=== PATIENT | male | born 1950 | race Two or more races ===

== ENCOUNTER 2024-06-22 15:44 | Inpatient (IN) | payer MEDICARE, MEDICAID, SELFPAY ==
[2024-06-22 16:11] VITALS: BP 92/55; PULSE 91; RESP 18; TEMP 37.4; O2SAT 98; BMI 23.8
--- NOTE | 2024-06-22 16:16 | XR_ITS ---
Examination: Foot, right, 3 views Technique: AP, oblique, lateral views foot, 3 views Date and time of exam: June 22, 2024 1631 hrs. Indications: Bleeding from the amputation site right foot this morning, patient is a diabetic Findings: Severe osteopenia Amputation first and second metatarsals Periosteal new bone along the second and third metatarsals consistent with osteomyelitis Soft tissue swelling with air densities at the fifth metatarsal phalangeal joint with early erosions distal fifth metatarsal Impression: Chronic osteomyelitis second and third metatarsals Early acute osteomyelitis distal fifth metatarsal with soft tissue infection at the fifth metatarsophalangeal joint
--- NOTE | 2024-06-22 16:17 | PD.EDRME ---
Rapid Medical Screening Exam RME Arrival date/time: 06/22/24 15:44 74-year-old male presents to the emergency department today for complaints of infection right foot Chief Complaint: Skin/Abscess/Foreign Body Vital signs: Vital Signs Temperature 99.4 F 06/22/24 16:11 Pulse Rate 91 06/22/24 16:11 Respiratory Rate 18 06/22/24 16:11 Blood Pressure 92/55 L 06/22/24 16:11 Pulse Oximetry (%) 98 06/22/24 16:11 Oxygen Delivery Method Room Air 06/22/24 16:11
[2024-06-22 16:57] LABS: Lactate (Lactic Acid) 1.7 mMol/L (0.4-2.0)
[2024-06-22 17:02] LABS: Basophils % (Auto) 0 % (0-2.5); Eosinophils # (Auto) 0.1 Thou/mm3 (0.0-0.5); Eosinophils % (Auto) 1 % (0-10); Hematocrit 32.7 % (41.0-53.0); Hemoglobin 11.5 g/dL (13.5-16.0); Immature Granulocytes % (Auto) 0 % (0-0); Immature Granulocytes Auto 0.03 Thou/mm3 (0.00-0.00); Lymphocytes # (Auto) 1.3 Thou/mm3 (1.0-4.8); Lymphocytes % (Auto) 12 % (10-50); Mean Corpuscular HGB Conc 35.2 g/dl (31.0-37.0); Mean Corpuscular Hemoglobin 31.9 pg (25.0-35.0); Mean Corpuscular Volume 91 fL (80-100); Monocytes # (Auto) 0.6 Thou/mm3 (0.0-0.8); Monocytes % (Auto) 6 % (0-12); Neutrophils # (Auto) 8.6 Thou/mm3 (1.8-7.7); Neutrophils % (Auto) 81 % (37-80); Nucleated Red Blood Cell % 0 /100 WBC (0); Platelet Count 253 Thou/mm3 (140-440); Red Blood Count 3.61 Miln/mm3 (4.50-5.90); White Blood Count 10.6 Thou/mm3 (3.8-10.6)
[2024-06-22 17:15] LABS: Glucose Estimated Average 226 mg/dL (80-131); Hemoglobin A1C 9.5 % Hgb (4.8-6.0)
[2024-06-22 17:24] LABS: Alanine Aminotransferase 14 U/L (10-49); Albumin, Serum 3.9 gm/dL (3.4-4.8); Albumin/Globulin Ratio 1.2 (1.2-2.2); Alkaline Phosphatase 83 U/L (46-116); Anion Gap 9 (7-16); Aspartate Amino Transferase 15 U/L (0-34); BUN/Creatinine Ratio 11 Ratio (12-20); Bilirubin,Total 0.4 mg/dL (0.3-1.2); Blood Urea Nitrogen 35 mg/dL (9-23); C-Reactive Protein 6.9 mg/dL (0.0-0.9); Calcium 8.8 mg/dL (8.3-10.6); Calcium (Corrected) 8.9 mg/dL (8.5-10.1); Carbon Dioxide 25.1 mMol/L (20.0-31.0); Chloride 104 mMol/L (98-107); Creatinine (Component) 3.3 mg/dL (0.6-1.3); Estimated Creatinine Clearance 18.3 mL/min (>60); Globulin 3.3 gm/dL (2.3-3.5); Glucose 284 mg/dL (74-106); Osmolality,Calculated 293 (275-295); Procalcitonin 0.31 ng/ml (0.0-0.49); Sodium 138 mMol/L (136-145); Total Protein 7.2 gm/dL (5.7-8.2); eGFR 19 See Note
[2024-06-22 17:26] LABS: Partial Thromboplastin Time 29.3 Seconds (22.0-36.0); Prothrombin Time 11.3 Seconds (9.0-12.2)
[2024-06-22 17:32] LABS: Sed Rate (ESR) 80 mm/hr (0-20)
--- NOTE | 2024-06-22 19:21 | PD.EDSKIN ---
ED Skin Abcess FB-RME/HPI General Chief complaint: Skin/Abscess/Foreign Body Stated complaint: Blister to right foot Time Seen by Provider: 06/22/24 19:20 Arrival date/time: 06/22/24 15:44 RME / HPI RME / HPI narrative: 74-year-old male patient with significant history of diabetes mellitus, status post below-knee amputation on the left came in for evaluation regarding right foot infection. Patient woke up this morning with redness and blister formation to the right foot, with pain described as dull ache severity is 4 out of 10. Patient denies any fever denies any other complaints no medication was taken prior to arrival. Related Data Home Medications ?Medication ?Instructions ?Recorded ?Confirmed atorvastatin 20 mg tablet 20 mg PO QDAY 08/14/20 08/14/20 glipizide 5 mg tablet, extended 5 mg PO QDAY 08/14/20 08/14/20 release 24 hr lisinopril 2.5 mg tablet 2.5 mg PO QDAY 08/14/20 08/14/20 metformin 1,000 mg tablet 1,000 mg PO BID 08/14/20 08/14/20 Allergies Allergy/AdvReac Type Severity Reaction Status Date / Time Penicillins Allergy Verified 06/22/24 15:47 Review of Systems Review of Systems Narrative Review of Systems: Review of system reviewed and within normal limits except mentioned in HPI ED Exam Narrative Physical exam: VITAL SIGNS: Reviewed. GENERAL APPEARANCE: Alert and interactive, follows commands, no acute distress, HEAD AND FACE: Non-traumatic. ENT: PERRL, pink conjunctivitis, eyelid no trauma, Mucous membrane moist. NECK: Supple, nontender, no nuchal rigidity. CHEST: No tenderness, no crepitus, no paradoxical movement, no retractions. LUNGS: Clear, well ventilated, symmetric, no rales, no wheezing, no ronchi, no stridor, good breath sounds bilaterally. HEART: Regular rate, regular rhythm, no murmur, no gallops. ABDOMEN: Soft, positive bowel sounds, nondistended, no guarding, nontender, no rebound, no masses, RECTAL: Deferred. GENITAL: Deferred. NEUROLOGICAL: Gross motor function intact sensory function intact, Appropriate for age. MUSCULOSKELETAL: low back nontender, full range of motion. EXTREMITIES: Status post below-knee amputation, with prosthesis, right foot deformity, status post right great to amputation, redness and swelling with serosanguineous drainage noted on the lateral aspect of the distal foot, warm to touch, full range of motion. SKIN: Color pink, dry, no rash, no lacerations, no abrasions, no contusions. LYMPHATICS: Deferred. Course Quality Measures none Orders Category Date Time Status XR foot comp RT min 3V Stat Exams 06/22/24 16:16 Completed A1C [Glycohemoglobin w (eAG)] Stat Lab 06/22/24 16:42 Completed Blood Culture (Lab) Stat Lab 06/22/24 16:35 Received CBC Stat Lab 06/22/24 16:42 Completed CMP [Comprehensive Metabolic Panel] Stat Lab 06/22/24 16:42 Completed CRP [C-Reactive Protein] Stat Lab 06/22/24 16:42 Completed ESR [Sed Rate (ESR)] Stat Lab 06/22/24 16:42 Completed Lactic Acid [Lactate (Lactic Acid)] Stat Lab 06/22/24 16:42 Completed PT [Prothrombin Time with INR] Stat Lab 06/22/24 16:42 Completed PTT [Partial Thromboplastin Time] Stat Lab 06/22/24 16:42 Completed Procalcitonin Stat Lab 06/22/24 16:42 Completed Vancomycin/Ns 1 gm Ivpb 200 ml Med 06/22/24 19:16 Discontinued IV X1 ceFAZolin/D5W 2 GM IV [Ancef 2gm Ivpb] Med 06/22/24 19:16 Discontinued 2 gm in 100 ml IV X1 Vital Signs Vital signs: Vital Signs Temperature 99.4 F 06/22/24 16:11 Pulse Rate 91 06/22/24 16:11 Respiratory Rate 18 06/22/24 16:11 Blood Pressure 92/55 L 06/22/24 16:11 Pulse Oximetry (%) 98 06/22/24 16:11 Oxygen Delivery Method Room Air 06/22/24 16:11 Skin / Abscess / Foreign Body MDM Narrative MDM Narrative:: 74-year-old male patient with significant history of diabetes mellitus, status post below-knee amputation on the left came in for evaluation regarding right foot infection. Patient woke up this morning with redness and blister formation to the right foot, with pain described as dull ache severity is 4 out of 10. Patient denies any fever denies any other complaints no medication was taken prior to arrival. CBC showed no leukocytosis. BUN was noted to be 35, creatinine of 3.3. Patient's hemoglobin A1c was noted also to be 9.5. X-ray of the foot showed Chronic osteomyelitis second and third metatarsals Early acute osteomyelitis distal fifth metatarsal with soft tissue infection at the fifth metatarsophalangeal joint Patient received IV vancomycin and Ancef IV Patient data External records reviewed:: None Clinical information provided by:: patient and family Social determinants that could affect healthcare access:: none Patient has the following chronic illnesses:: Diabetes mellitus How is presenting disease/condition affected by chronic disease/condition?: exacerbated by Evaluation data The following diagnostics were reviewed and interpreted by me:: lab results and radiology exam(s) Lab and/or radiology exams considered but not ordered:: None Interpretation Summary: See results in [facility] Medications / Prescriptions Medications or Prescriptions considered but not ordered:: Plan Medication administrations:: Medication Administration History Acetaminophen (Acetaminophen 325 Mg Tablet) 650 mg PO Q6H PRN PRN Reason: Fever >100.4 or pain 1-3 Stop: 07/22/24 19:20 Dextrose (Dextrose 50%-Water Inj 50 Ml Syringe) 25 ml IV Q15MIN PRN PRN Reason: BG 50-70 responsive npo pt Stop: 07/22/24 19:23 Dextrose (Dextrose 50%-Water Inj 50 Ml Syringe) 50 ml IV Q15MIN PRN PRN Reason: BG <50 OR BG <70 & pt unresponsive Stop: 07/22/24 19:23 Glucagon (Glucagon Inj 1 Mg Vial) 1 mg IM Q15MIN PRN PRN Reason: BG <70, and no IV access Heparin Sodium (Porcine) (Heparin Sod Inj 5000 Unit/Ml Vial) 5,000 unit SC Q8HR [facility] Stop: 07/06/24 21:59 Hydralazine HCl (Hydralazine Inj 20 Mg/Ml Vial) 10 mg IV Q6H PRN PRN Reason: SBP >180 Stop: 07/22/24 20:13 Hydromorphone HCl (Hydromorphone Inj 2 Mg/Ml Vial) 1 mg IVP Q4HR PRN PRN Reason: Pain 7-10 Stop: 06/27/24 20:22 Sodium Chloride (Ns) 1,000 mls @ 75 mls/hr IV .[id number] [facility] Stop: 07/22/24 19:29 Last Admin: 06/22/24 19:55 Dose: 75 mls/hr Documented By: BD Piperacillin/Tazobactam/Dextrose (Zosyn) 3.375 gm in 50 mls @ 12.5 mls/hr IV Q12HR JACINDA Stop: 06/30/24 08:59 Insulin Glargine (Insulin Glargine (Lantus) 5 Unit/0.05 Ml (Per 5 Units)) 10 unit SC QDAY JACINDA Stop: 07/23/24 08:59 Insulin Human Lispro (Insulin Lispro (Admelog) 1 Unit/0.01 Ml Unit) 0 unit SC AC JACINDA; Protocol Stop: 07/23/24 07:29 Oxycodone/Acetaminophen (Oxycodone/Apap 5/325 Tablet) 1 tab PO Q6HR PRN PRN Reason: Pain 4-6 Stop: 06/27/24 19:54 Pharmacy Consult (Vancomycin Pharmacy To Dose 1 Each Each) 1 each IV QDAY PRN PRN Reason: PROTOCOL Stop: 07/23/24 08:59 Discontinued Medications Acetaminophen (Acetaminophen 325 Mg Tablet) 650 mg PO Q6H PRN PRN Reason: Fever >101.5 Stop: 07/22/24 19:20 Acetaminophen (Acetaminophen 325 Mg Tablet) 650 mg PO Q6H PRN PRN Reason: Fever >100.4 or pain Stop: 07/22/24 19:20 Vancomycin/Sodium Chloride (Vancomycin/Ns 1 Gm Ivpb) 200 mls @ 120 mls/hr IV X1 ONE Stop: 06/22/24 20:55 Last Admin: 06/22/24 19:54 Dose: 120 mls/hr Documented By: BD Cefazolin Sodium (Ancef 2gm Ivpb) 2 gm in 100 mls @ 200 mls/hr IV X1 ONE Stop: 06/22/24 19:45 Piperacillin/Tazobactam/Dextrose (Zosyn) 3.375 gm in 50 mls @ 100 mls/hr IV X1 ONE Stop: 06/22/24 20:29 Insulin Human Lispro (Insulin Lispro (Admelog) 1 Unit/0.01 Ml Unit) 0 unit SC AC JACINDA; Protocol Stop: 07/23/24 07:29 Nicotine (Nicotine Patch 7 Mg/24 Hr Patch.Td24) 7 mg TOP X1 ONE Stop: 06/22/24 20:18 Oxycodone/Acetaminophen (Oxycodone/Apap 5/325 Tablet) 1 tab PO Q6HR PRN PRN Reason: Pain 4-10 Stop: 06/27/24 19:54 Ancef, Selina Consultations Consultation(s) initiated? (list below): No Diagnosis Skin/Abscess Differential Diagnosis: abscess of skin or subcutaneous tissue, cellulitis and impetigo Most likely diagnosis given after review of the tests above:: Diabetic foot infection Admission Indicated Admission indicated?: not indicated Admission Request Was there a request for admission?: Yes Admission Attestation Admission request attestation: Discussed case with [Dr Zaragoza] from Hospitalist service regarding admission. Discussed patients ED course, exam findings, labs, and radiology results. The Hospitalist [agrees,] to accept the patient for admission. Disposition Plan Disposition Plan: Admit Discharge Plan Plan Patient Disposition: Admit Acute Care w/in Hospital Disposition Comment: Stable Problem List Clinical Impression: Diabetic foot infection
[2024-06-22 19:27] VITALS: BP 162/81; PULSE 70; RESP 16; TEMP 36.9; O2SAT 99
--- NOTE | 2024-06-22 19:32 | PD.EVENT ---
Documentation for date of: 06/22/24 Event Note Event Note: A 74-year-old male presented to the ER with the chief complaint of right foot pain. He reports having a chronic wound on his right foot for several years, but over the past 4 days, the pain has progressively worsened. On the morning of presentation, the wound began to crack open and ooze fluid, which he describes as being associated with severe pain. He denies any fever, chills, sick contacts, or trauma to the area. He also denies chest pain, shortness of breath, palpitations, cough, abdominal pain, nausea, vomiting, or diarrhea. 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 Surgical history includes left BKA and right forearm surgery. Despite an elevated A1c of 9.5% indicating poorly controlled diabetes, the patient states that his home glucose levels are well-controlled. He is currently taking Rybelsus and Januvia and is not using insulin. He has a reported allergy to penicillin (rash). Family history is notable for a father who of a heart attack and a mother with unspecified cancer. Social history includes a [id number] smoking history, no alcohol or illicit drug use. He lives alone in [place] and was accompanied to the ED by a friend. In the ER, vital signs recorded as temp 99.4?F, HR 91 bpm, RR 18, BP 92/55 mmHg. Labs revealed WBC 10.6, Hb 11.5, PLT 253, Na 138, K 4.0, BUN 35, creatinine 3.3, glucose 284, A1c 9.5, procalcitonin 0.31, and ESR 80. X-ray of the right foot demonstrated chronic osteomyelitis of the second and third metatarsals and early acute osteomyelitis of the distal fifth metatarsal with soft tissue infection at the fifth metatarsophalangeal joint. He is going to be admitted for further management. Right foot with hyperpigmentation, xerosis, and scaly patches along the dorsum and lateral ankle. Notable ulceration and thickened skin with overlying eschar and erythema on the dorsal foot. S/P first and second toe amputation on right foot.
--- NOTE | 2024-06-22 19:34 | ESHP_ITS ---
<Statement entered by Guero Gonzalez MD - 06/22/24 20:05> This patient is a 74-year-old F with history of diabetes presented with complaint of right foot pain and oozing discharge x 4 days ago. He has a history of left below-knee amputation due to osteomyelitis as well. He is admitted for osteomyelitis right fifth metatarsal. ESR and CRP were elevated. Surgery has been consulted and antibiotics Zosyn and vancomycin were started. He was also found to have STEFFANIE on CKD stage IIIb?IV. Will be given gentle IV fluid resuscitation. Blood cultures and MRSA screen along with wound care was ordered. All labs and orders were reviewed. I saw and examined the patient, and I agree with current management stated by Dr Patrick MD,PGY1. Plan of care was discussed with the attending physician and resident physician. Disclaimer: Despite multiple revisions, due to the dictation software being used, the document bellow may not be free of grammatical errors including phonetic/typographic errors. However, this does not deter from our commitment to providing health care in the patient's best interest in mind. Dr. Carlos MD, PGY 2 Documentation for date of: 06/22/24 HPI History of Present Illness Chief complaint: R foot pain History of present illness: 74-year-old Ivorian-speaking male with past medical history of hypertension, owh-pwqizhq-oyvgugewl type 2 diabetes, left BKA secondary to diabetes associated osteomyelitis, tobacco dependence, hyperlipidemia, CKD stage IV presenting to the ED on 06/22 with right foot pain. Patient states that he has had a wound on his right foot for several years; however, for the past 4 days the pain has been progressively worsening. This morning is when the wound started to crack open and had some oozing which was associated with severe pain. Patient denies having any fever/chills, sick contacts, trauma to the area but does state that the pain is very severe. Patient has uncontrolled diabetes as noted with an A1c of 9.5%; however, he does state that blood sugars at home are well-controlled patient is on Rybelsus and Januvia and denies using any insulin. Patient otherwise denies any concerning symptoms such as chest pain, shortness of breath, palpitations, cough, abdominal pain, nausea/vomiting/diarrhea. Medical history: As stated above Surgical history: Left BKA, right forearm surgery Allergies: Penicillin apparently causes a rash Medications: As listed Family history: Patient's father from heart attack, mother had cancer (unknown what type), denies family history of hypertension or diabetes Social history: Patient is accompanied in the ED by his friend, currently lives in [place], lives alone. Patient has been smoking since 14 years old, less than 1 pack a day roughly [id number] history, denies any alcohol or illicit drug use ROS: All 12 systems assessed and the patient denies unless otherwise stated in HPI In the ED, patient presented hypotensive 92/55, heart rate 91, respiratory rate 18, afebrile 99.4 ?F, satting 98 on room air. Fingerstick blood glucose showed 261 and laboratory findings were pertinent for WBC of 10.6, hemoglobin 11.5 with MCV 91, BUN 35, creatinine 3.3, EGFR 19, A1c of 9.5, lactic acid 1.7, CRP 6.9, ESR 80, Pro-Josue 0.31. Foot x-ray showed chronic osteomyelitis of the 2nd and 3rd metatarsals and early acute osteomyelitis of the distal fifth metatarsal with soft tissue infection at the fifth metatarsal phalangeal joint. Patient will be admitted for osteomyelitis of the fifth metatarsal and started on IV antibiotics, pain management and general surgery were consulted for possible need for amputation. Exam Vital Signs Temp Pulse Resp BP Pulse Ox O2 Del Method 98.4 F 70 16 162/81 H 99 Room Air 06/22/24 19:27 06/22/24 19:27 06/22/24 19:27 06/22/24 19:27 06/22/24 19:27 06/22/24 19:27 Narrative Exam Physical Exam: GENERAL: Awake, answering questions appropriately in Ivorian, appears stated age. HEENT: NC/AT. Moist mucosa. PERRLA/EOMI. CARDIO: Heart RRR, III/ systolic ejection murmur heard at left sternal border, no JVD. PULM: No coughing or visible SOB. Lungs CTA B/L other than some periodic wheezing noted on lateral lung braswell bila.terally GI: Abdomen soft, NT/ND, +BS. SKIN/MSK/EXT: Right foot bandaged, missing phalanges, oozing ulcer noted. Left BKA with prosthetic. No wounds/discoloration/rashes/edema. +Pedal pulses present B/L. NEURO: Oriented x3, Moves extremities x4, no focal neurologic deficits noted. Results: Labs 06/22/24 16:42 06/22/24 16:42 Labs: Short CBC 06/22/24 Range/Units 16:42 WBC 10.6 (3.8-10.6) Thou/mm3 Hgb 11.5 L (13.5-16.0) g/dL Hct 32.7 L (41.0-53.0) % Plt Count 253 (140-440) Thou/mm3 BMP 06/22/24 16:42 Sodium 138 Potassium 4.0 Chloride 104 Carbon Dioxide 25.1 BUN 35 H Creatinine 3.3 H Glucose 284 H Calcium 8.8 Liver Function 06/22/24 Range/Units 16:42 Total Bilirubin 0.4 (0.3-1.2) mg/dL AST 15 (0-34) U/L ALT 14 (10-49) U/L Alkaline Phosphatase 83 (46-116) U/L Albumin 3.9 (3.4-4.8) gm/dL Quality Measures Quality Measures VTE prophylaxis Advance care planning discussed with:: patient Medications Home Medications and Allergies Home Medications ?Medication ?Instructions ?Recorded ?Confirmed ?Type atorvastatin 20 mg tablet 20 mg PO QDAY 08/14/2008/14 History glipizide 5 mg tablet, extended 5 mg PO QDAY 08/14/20 08/14/20 History release 24 hr lisinopril 2.5 mg tablet 2.5 mg PO QDAY 08/14/2006/01 History metformin 1,000 mg tablet 1,000 mg PO BID 08/14/2006/01 History Allergies Allergy/AdvReac Type Severity Reaction Status Date / Time Penicillins Allergy Verified 06/22/24 15:47 Visit Medications Acetaminophen (Acetaminophen 325 Mg Tablet) 650 mg PO Q6H PRN PRN Reason: Fever >101.5 Stop: 07/22/24 19:20 Dextrose (Dextrose 50%-Water Inj 50 Ml Syringe) 25 ml IV Q15MIN PRN PRN Reason: BG 50-70 responsive npo pt Stop: 07/22/24 19:23 Dextrose (Dextrose 50%-Water Inj 50 Ml Syringe) 50 ml IV Q15MIN PRN PRN Reason: BG <50 OR BG <70 & pt unresponsive Stop: 07/22/24 19:23 Glucagon (Glucagon Inj 1 Mg Vial) 1 mg IM Q15MIN PRN PRN Reason: BG <70, and no IV access Heparin Sodium (Porcine) (Heparin Sod Inj 5000 Unit/Ml Vial) 5,000 unit SC Q8HR [facility]ACINDA Stop: 07/06/24 21:59 Vancomycin/Sodium Chloride (Vancomycin/Ns 1 Gm Ivpb) 200 mls @ 120 mls/hr IV X1 ONE Stop: 06/22/24 20:55 Sodium Chloride (Ns) 1,000 mls @ 75 mls/hr IV .[id number] JACINDA Stop: 07/22/24 19:29 Piperacillin/Tazobactam/Dextrose (Zosyn) 2.25 gm in 50 mls @ 100 mls/hr IV Q6H JACINDA Stop: 06/29/24 19:29 Insulin Glargine (Insulin Glargine (Lantus) 5 Unit/0.05 Ml (Per 5 Units)) 10 unit SC QDAY JACINDA Stop: 07/23/24 08:59 Insulin Human Lispro (Insulin Lispro (Admelog) 1 Unit/0.01 Ml Unit) 0 unit SC AC JACINDA; Protocol Stop: 07/23/24 07:29 Pharmacy Consult (Vancomycin Pharmacy To Dose 1 Each Each) 1 each IV QDAY PRN PRN Reason: PROTOCOL Stop: 07/23/24 08:59 Discontinued Medications Cefazolin Sodium (Ancef 2gm Ivpb) 2 gm in 100 mls @ 200 mls/hr IV X1 ONE Stop: 06/22/24 19:45 Assessment & Plan Plan 74-year-old Ivorian-speaking male with past medical history of hypertension, wci-xwhxdqe-hyvssaylv type 2 diabetes, 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 #Acute osteomyelitis, right fifth metatarsal #Chronic osteomyelitis As per HPI, patient has been having 4 days of progressive right foot pain with open lesion that started this morning Patient has been having wound for several years now likely secondary to poorly controlled type 2 diabetes Patient denies having any trauma to the area, denies having any fever/chills or any other concerning cardiac symptoms In the ED, patient presented hypotensive, afebrile but with a temperature of 99.4 ?F, heart rate of 91 WBC of 10.6, ESR of 80 and CRP of 6.9, Pro-Josue of 0.31 In the ED, patient was given vancomycin and started on NS at 75 cc an hour Foot x-ray showed chronic osteomyelitis of the 2nd and 3rd metatarsals and early acute osteomyelitis of the distal fifth metatarsal with soft tissue infection at the fifth metatarsal phalangeal joint. Plan: General Surgery, Dr. Alfonso, consulted appreciate recommendations Patient started on IV Vancomycin (pharmacy to dose) and IV Zosyn 3.375 every 12 Multimodal pain management with Tylenol, oxycodone and dilaudid Wound referral Blood cultures #STEFFANIE on CKD stage IV Likely secondary to poorly controlled type 2 diabetes along with hypertension Patient has known history of CKD as noted from EMR with creatinine baseline of 1.9-2.0 Patient presenting with creatinine of 3.3 likely secondary to osteomyelitis infection Patient on home lisinopril, pending official med rec Plan: Continue maintenance IV fluids as noted above Avoid nephrotoxic agents Renally dose medications Follow-up with morning labs #Bja-ogcmune-edggrmjlq type 2 diabetes Longstanding history of type 2 diabetes, patient states that he is on Rybelsus and Januvia pending official med rec Patient's fingerstick blood glucose have been in the 260s and A1c is 9.5 Plan: Insulin glargine 10 units at bedtime Sliding scale insulin Carb consistent low diet Diabetic education #Hypertension Chronic medical condition, patient is on home lisinopril pending official med rec Plan: Hold LIANET/ARB in the setting of STEFFANIE on CKD As needed hydralazine 10 mg every 6 if systolic blood pressures greater than 180 #Hyperlipidemia Chronic medical condition, patient apparently on atorvastatin pending official med rec Plan: Restart home medication when appropriate #Normocytic anemia Likely secondary to kidney disease (anemia of chronic disease) versus iron deficiency anemia, vitamin deficiency, less likely to be hemolytic anemia, bone marrow malignancy Hemoglobin of 11.5 with MCV of 91, RDW within normal limits and platelets stable at 253 Plan: Follow-up on iron panel, ferritin, reticulocyte count ordered Consider blood smear if continues to downtrend #Tobacco dependence Patient has been smoking <1 pack a day for ~60 years; since age 14 Roughly 40-pack year history Plan: Nicotine patch Follow-up with PCP for low-dose CT for lung cancer screening Hospital Management: Lines: PIV Diet: Carb consistent low Bowel: Senna as needed GI prophylaxis: Not needed DVT prophylaxis: Heparin subcu Dispo: IV antibiotics and pain management for acute osteomyelitis with general surgery consultation Code: DNR Patient seen and assessed with attending Dr. Zaragoza and senior resident Dr. Carlos Zambrano, PGY-1 Attending Provider Attestation/Addendum Pt was evaluated and plan formulated together with the housestaff team. I have reviewed the residents note above and agree with most of its content. Please refer to the residents note for additional details.
[2024-06-22] MEDS: VANCOMYCIN/NS 1 GM IVPB 200 ML IV (19:54)
[2024-06-22] MEDS: SODIUM CHLORIDE 0.9% 1000 ML 1,000 ML 75 ML IV (19:55)
[2024-06-22 20:32] LABS: Magnesium 2.2 mg/dL (1.6-2.6)
[2024-06-22] MEDS: PIPER/TAZO 3.375 GM PREMIX 3.375 GM/50 ML BAG IV (21:12)
[2024-06-22] MEDS: NICOTINE PATCH 7 MG/24 HR PATCH.TD24 TOP (21:15)
[2024-06-22] MEDS: HEPARIN SOD INJ 5000 UNIT/ML VIAL SC (21:48)
[2024-06-22 23:32] VITALS: BMI 21.3
[2024-06-22 23:58] VITALS: BP 162/74; PULSE 69; RESP 18; TEMP 36.4; O2SAT 100
[2024-06-23 04:00] VITALS: BP 134/58; PULSE 72; RESP 16; TEMP 36.6; O2SAT 99
[2024-06-23 05:54] LABS: Basophils % (Auto) 0 % (0-2.5); Eosinophils # (Auto) 0.2 Thou/mm3 (0.0-0.5); Eosinophils % (Auto) 2 % (0-10); Hematocrit 28.8 % (41.0-53.0); Hemoglobin 9.9 g/dL (13.5-16.0); Immature Granulocytes % (Auto) 0 % (0-0); Immature Granulocytes Auto 0.01 Thou/mm3 (0.00-0.00); Immature Reticulocyte Fraction 9.1 % (2.3-13.4); Lymphocytes # (Auto) 1.3 Thou/mm3 (1.0-4.8); Lymphocytes % (Auto) 18 % (10-50); Mean Corpuscular HGB Conc 34.4 g/dl (31.0-37.0); Mean Corpuscular Volume 90 fL (80-100); Monocytes # (Auto) 0.5 Thou/mm3 (0.0-0.8); Monocytes % (Auto) 7 % (0-12); Neutrophils # (Auto) 5.1 Thou/mm3 (1.8-7.7); Neutrophils % (Auto) 72 % (37-80); Nucleated Red Blood Cell % 0 /100 WBC (0); Platelet Count 216 Thou/mm3 (140-440); RDW Standard Deviation 38.8 fL (35.1-43.9); Red Blood Count 3.19 Miln/mm3 (4.50-5.90); Reticulocyte % (Auto) 0.8 % (0.5-1.5); Reticulocyte Absolute Auto 25.2 Biln/L (25.0-75.0); Reticulocyte Hgb Content 32.6 pg (28.0-35.0)
[2024-06-23] MEDS: HEPARIN SOD INJ 5000 UNIT/ML VIAL SC ×3 (05:55→22:23)
[2024-06-23 06:07] LABS: Anion Gap 7 (7-16); BUN/Creatinine Ratio 11 Ratio (12-20); Blood Urea Nitrogen 34 mg/dL (9-23); Calcium 8.1 mg/dL (8.3-10.6); Carbon Dioxide 26.1 mMol/L (20.0-31.0); Chloride 108 mMol/L (98-107); Creatinine (Component) 3.1 mg/dL (0.6-1.3); Estimated Creatinine Clearance 18.2 mL/min (>60); Glucose 332 mg/dL (74-106); Magnesium 2.2 mg/dL (1.6-2.6); Osmolality,Calculated 301 (275-295); Phosphorous 3.3 mg/dL (2.4-5.1); Potassium 3.6 mMol/L (3.4-5.1); Sodium 141 mMol/L (136-145); eGFR 21 See Note
[2024-06-23 06:42] LABS: Ferritin 240 ng/mL (10.5-307.3); Iron 31 mcg/dL (65-175); Percent Iron Saturation 18 % (20-55); Total Iron Binding Capacity 166 mcg/dL (250-425); Unsaturated Iron Binding 135 (225-295)
[2024-06-23 07:38] LABS: Vancomycin,Random 10.3 mcg/mL
[2024-06-23] MEDS: INSULIN LISPRO (AdmeLOG) 1 UNIT/0.01 ML UNIT SC ×2 (07:43→18:30)
[2024-06-23] MEDS: INSULIN GLARGINE (Lantus) 5 UNIT/0.05 ML (PER 5 UNITS) 10 UNIT SC (07:43)
[2024-06-23 08:00] VITALS: BP 140/72; PULSE 75; RESP 19; TEMP 36.7; O2SAT 97
[2024-06-23] MEDS: VANCOMYCIN/NS 1 GM IVPB 200 ML IV (09:16)
[2024-06-23] MEDS: PIPER/TAZO 3.375 GM PREMIX 3.375 GM/50 ML BAG IV ×2 (09:16→22:22)
[2024-06-23] MEDS: SODIUM CHLORIDE 0.9% 1000 ML 1,000 ML 75 ML IV ×2 (09:17→22:24)
--- NOTE | 2024-06-23 11:53 | ESPR_ITS ---
Documentation for date of: 06/23/24 Subjective Subjective Interval history: Patient seen and examined at bedside. Patient admitted overnight for osteomyelitis, was evaluated by surgery today. Surgery recommends wound care, x-ray was evident for osteomyelitis. Will continue IV antibiotics, will consider infectious disease consult on Tuesday with possible PICC line placement. Patient's hemoglobin A1c 9.5, sliding scale insulin changed to step 3. Will continue to monitor patient. Exam Vital Signs Temp Pulse Resp BP Pulse Ox O2 Del Method 98.1 F 75 19 140/72 H 97 Room Air 06/23/24 08:00 06/23/24 08:00 06/23/24 08:00 06/23/24 08:00 06/23/24 08:00 06/23/24 08:00 Narrative Exam Physical Exam: GENERAL: Awake, answering questions appropriately in Italian, appears stated age. HEENT: NC/AT. Moist mucosa. PERRLA/EOMI. CARDIO: Heart RRR, III/ systolic ejection murmur heard at left sternal border, no JVD. PULM: No coughing or visible SOB. Lungs CTA B/L GI: Abdomen soft, NT/ND, +BS. SKIN/MSK/EXT: Right foot bandaged, missing phalanges, oozing ulcer noted. Left BKA with prosthetic. +Pedal pulses present B/L. NEURO: Oriented x3, Moves extremities x4, no focal neurologic deficits noted. Objective Labs 06/27/24 07:24 06/27/24 05:05 Labs: Laboratory Results - last 24 hr 06/22/24 06/23/24 16:42 05:30 WBC 10.6 7.0 RBC 3.61 L 3.19 L Hgb 11.5 L 9.9 L Hct 32.7 L 28.8 L MCV 91 90 MCH 31.9 31.0 MCHC 35.2 34.4 RDW Std Deviation 39.0 38.8 Plt Count 253 216 D Neut % (Auto) 81 H 72 Lymph % (Auto) 12 18 [place] % (Auto) 6 7 Eos % (Auto) 1 2 Baso % (Auto) 0 0 Neut # (Auto) 8.6 H 5.1 Lymph # (Auto) 1.3 1.3 [place] # (Auto) 0.6 0.5 Eos # (Auto) 0.1 0.2 Baso # (Auto) 0.0 0.0 Immature Gran # (Auto) 0.03 H 0.01 H Absolute Nucleated RBC 0.00 0.00 Immature Gran % 0 0 Nucleated RBC % 0 0 ESR 80 H Retic Count (auto) 0.8 Absolute Retic 25.2 Immature Retic Fraction 9.1 Retic Hgb Content CHr 32.6 PT 11.3 INR 1.0 APTT 29.3 Sodium 138 141 Potassium 4.0 3.6 Chloride 104 108 H Carbon Dioxide 25.1 26.1 Anion Gap 9 7 BUN 35 H 34 H Creatinine 3.3 H 3.1 H Estim Creat Clear Calc 18.3 L 18.2 L eGFR 19 L 21 L BUN/Creatinine Ratio 11 L 11 L Glucose [address] Glu mg/dL 226 H Hemoglobin A1c 9.5 H Calculated Osmolality 293 301 H Lactic Acid 1.7 Calcium 8.8 8.1 L Corrected Calcium 8.9 Phosphorus 3.3 Magnesium 2.2 2.2 Iron 31 L TIBC 166 L Iron Saturation 18 L Unsat Iron Binding 135 L Ferritin 240 Total Bilirubin 0.4 AST 15 ALT 14 Alkaline Phosphatase 83 C-Reactive Prot, Quant 6.9 H Total Protein 7.2 Albumin 3.9 Globulin 3.3 Albumin/Globulin Ratio 1.2 Procalcitonin 0.31 Random Vancomycin 10.3 Quality Measures Quality Measures none Advance care planning discussed with:: patient Assessment & Plan Assessment Current Active Medications: Generic Name Dose Route Start Last Admin Trade Name Freq PRN Reason Stop Dose Admin Acetaminophen 650 mg 06/22/24 20:24 Acetaminophen 325 Mg Tablet PO 07/22/24 19:20 Q6H PRN Fever >100.4 or pain 1-3 Dextrose 25 ml 06/22/24 19:24 Dextrose 50%-Water Inj 50 Ml Syringe IV 07/22/24 19:23 Q15MIN PRN BG 50-70 responsive npo pt Dextrose 50 ml 06/22/24 19:24 Dextrose 50%-Water Inj 50 Ml Syringe IV 07/22/24 19:23 Q15MIN PRN BG <50 OR BG <70 & pt unresponsive Glucagon 1 mg 06/22/24 19:24 Glucagon Inj 1 Mg Vial IM Q15MIN PRN BG <70, and no IV access Heparin Sodium (Porcine) 5,000 unit 06/22/24 22:00 06/23/24 05:55 Heparin Sod Inj 5000 Unit/Ml Vial SC 07/06/24 21:59 5,000 unit Q8HR JACINDA Administration Hydralazine HCl 10 mg 06/22/24 20:14 Hydralazine Inj 20 Mg/Ml Vial IV 07/22/24 20:13 Q6H PRN SBP >180 Hydromorphone HCl 1 mg 06/22/24 20:23 Hydromorphone Inj 2 Mg/Ml Vial IVP 06/27/24 20:22 Q4HR PRN Pain 7-10 Sodium Chloride 1,000 mls @ 75 mls/hr 06/22/24 19:30 06/23/24 09:17 Ns IV 07/22/24 19:29 75 mls/hr .[id number] JACINDA Administration Piperacillin/Tazobactam/Dextrose 3.375 gm in 50 mls @ 12.5 mls/hr 06/23/24 09:00 06/23/24 09:16 Zosyn IV 06/30/24 08:59 12.5 mls/hr Q12HR JACINDA Administration Insulin Glargine 10 unit 06/23/24 09:00 06/23/24 07:43 Insulin Glargine (Lantus) 5 Unit/0.05 Ml (Per 5 Units) SC 07/23/24 08:59 10 unit QDAY JACINDA Administration Insulin Human Lispro 0 unit 06/23/24 08:30 06/23/24 11:29 Insulin Lispro (Admelog) 1 Unit/0.01 Ml Unit SC 07/23/24 07:29 Not Given AC JACINDA Protocol Oxycodone/Acetaminophen 1 tab 06/22/24 20:24 Oxycodone/Apap 5/325 Tablet PO 06/27/24 19:54 Q6HR PRN Pain 4-6 Pharmacy Consult 1 each 06/23/24 09:00 Vancomycin Pharmacy To Dose 1 Each Each IV 07/23/24 08:59 QDAY PRN PROTOCOL Sennosides 1 tab 06/22/24 23:07 Senna Tablet PO 07/22/24 23:06 QDAY PRN CONSTIPATION Protocol Plan 74-year-old Italian-speaking male with past medical history of hypertension, [id number] type 2 diabetes, 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 #Acute osteomyelitis, right fifth metatarsal #Chronic osteomyelitis As per HPI, patient has been having 4 days of progressive right foot pain with open lesion that started this morning Patient has been having wound for several years now likely secondary to poorly controlled type 2 diabetes Patient denies having any trauma to the area, denies having any fever/chills or any other concerning cardiac symptoms In the ED, patient presented hypotensive, afebrile but with a temperature of 99.4 ?F, heart rate of 91 WBC of 10.6, ESR of 80 and CRP of 6.9, Pro-Josue of 0.31 In the ED, patient was given vancomycin and started on NS at 75 cc an hour Foot x-ray showed chronic osteomyelitis of the 2nd and 3rd metatarsals and early acute osteomyelitis of the distal fifth metatarsal with soft tissue infection at the fifth metatarsal phalangeal joint. Plan: Patient started on IV Vancomycin (pharmacy to dose) and IV Zosyn 3.375 every 12 (06/22- Multimodal pain management with Tylenol, oxycodone and dilaudid Wound referral Follow blood cultures General Surgery, Dr. Alfonso, consulted appreciate recommendations #STEFFANIE on CKD stage IV Likely secondary to poorly controlled type 2 diabetes along with hypertension Patient has known history of CKD as noted from EMR with creatinine baseline of 1.9-2.0 Patient presenting with creatinine of 3.3 likely secondary to osteomyelitis infection Patient on home lisinopril, pending official med rec Plan: Continue maintenance IV fluids Avoid nephrotoxic agents Renally dose medications Follow-up with morning labs #Bha-ugtxfas-libhrdbpp type 2 diabetes Longstanding history of type 2 diabetes, patient states that he is on Rybelsus and Januvia pending official med rec Patient's fingerstick blood glucose have been in the 260s and A1c is 9.5 Plan: Insulin glargine 10 units at bedtime Sliding scale insulin step 3 Carb consistent low diet Diabetic education #Hypertension Chronic medical condition, patient is on home lisinopril pending official med rec Plan: Hold LIANET/ARB in the setting of STEFFANIE on CKD As needed hydralazine 10 mg every 6 if systolic blood pressures greater than 180 #Hyperlipidemia Chronic medical condition, patient apparently on atorvastatin pending official med rec Plan: Restart home medication when appropriate #Normocytic anemia Likely multifactorial and to kidney disease (anemia of chronic disease) and iron deficiency anemia, vitamin deficiency, less likely to be hemolytic anemia, bone marrow malignancy Hemoglobin of 11.5 with MCV of 91, RDW within normal limits and platelets stable at 253 Iron 31, TIBC 166, iron saturation 18%, onset iron binding 135, ferritin 240 Plan: Follow CBC in a.m. #Tobacco dependence Patient has been smoking <1 pack a day for ~60 years; since age 14 Roughly 40-pack year history Plan: Nicotine patch Follow-up with PCP for low-dose CT for lung cancer screening Hospital Management: Lines: PIV Diet: Carb consistent low Bowel: Senna as needed GI prophylaxis: Not needed DVT prophylaxis: Heparin subcu Code: DNR Case discussed with Attending Dr. Bragg. Lori Thorne PGY1 Disclaimer: This note was dictated by speech recognition. Minor errors in parachute crown sewer may be present due to voice recognition software. Attending Provider Attestation/Addendum Patient seen and examined at bedside with resident. I have reviewed all relevant labs, imaging, orders and agree with assessment and plan as dictated above. Patient currently on IV antibiotics, surgery eval done and states no surgical indications at this time. Will continue with IV antibiotics and plan to discharge on p.o. antibiotics in the next 1 to 2 days. Chad Bragg MD
[2024-06-23 12:00] VITALS: BP 144/68; PULSE 68; RESP 17; TEMP 36.2; O2SAT 98
--- NOTE | 2024-06-23 12:51 | PD.SURCONS ---
HPI Consult details Consult date: 06/23/24 Reason for consultation narrative: Right foot osteomyelitis History of present illness: 74-year-old male history of diabetes, hypertension, tobacco use disorder, PAD has had left BKA, and amputations of right fourth and fifth toes in the past. He was admitted with pain and drainage from the right foot. X-ray was obtained that revealed chronic osteomyelitis of second and third toes and acute osteomyelitis of fifth toe with soft tissue infection. Patient was started on IV antibiotics and admitted for management. Review of Systems Constitutional Constitutional: Denies chills and Denies fever(s) Cardiovascular Cardiovascular: Denies chest pain Gastrointestinal Gastrointestinal: Denies abdominal pain Hematologic/Lymphatic Hematologic/Lymphatic: Denies easy bleeding and Denies easy bruising Past Medical History Surgical History OTHER SURGICAL HX: Left BKA, right fourth and fifth toe amputation Social History SMOKING STATUS: Current every day smoker SUBSTANCE USE: does not use ALCOHOL: Former Meds Home Medications and Allergies Home Medications ?Medication ?Instructions ?Recorded ?Confirmed ?Type atorvastatin 20 mg tablet 20 mg PO QDAY 08/14/20 08/14/20 History glipizide 5 mg tablet, extended 5 mg PO QDAY 08/14/20 08/14/20 History release 24 hr lisinopril 2.5 mg tablet 2.5 mg PO QDAY 08/14/20 08/14/20 History metformin 1,000 mg tablet 1,000 mg PO BID 08/14/20 08/14/20 History Allergies Allergy/AdvReac Type Severity Reaction Status Date / Time Penicillins Allergy Verified 06/22/24 15:47 Exam Vital Signs Temp Pulse Resp BP Pulse Ox O2 Del Method O2 Flow Rate 97.2 F 68 17 144/68 H 98 Nasal Cannula 2 06/23/24 12:00 06/23/24 12:00 06/23/24 12:00 06/23/24 12:00 06/23/24 12:00 06/23/24 12:00 06/23/24 12:00 Constitutional Constitutional: no acute distress Routine Extremities Exam Comments: He has left BKA.. He appears to have had fourth and fifth toes amputated on the right side. He has a blister on the lateral aspect of right foot that was debrided, no evidence of abscess at this time Assessment & Plan Additional Assessment Additional comments: Osteomyelitis right foot Plan Local wound care with wet-to-dry dressings and IV antibiotics. No indications for surgical intervention at this time. When medically stable patient can be discharged on oral antibiotics and follow-up with wound clinic
[2024-06-23 13:45] VITALS: BMI 21.2
[2024-06-23 16:00] VITALS: BP 154/69; PULSE 67; RESP 18; TEMP 36.9; O2SAT 99
[2024-06-23 20:00] VITALS: BP 157/70; PULSE 74; RESP 16; TEMP 36.8; O2SAT 99
[2024-06-24] VITALS: BP 165/74; PULSE 73; RESP 18; TEMP 36.3; O2SAT 98
[2024-06-24 04:00] VITALS: BP 145/72; PULSE 66; RESP 18; TEMP 37; O2SAT 98
[2024-06-24] MEDS: HEPARIN SOD INJ 5000 UNIT/ML VIAL SC ×3 (05:06→21:44)
[2024-06-24] MEDS: oxyCODONE/APAP 5/325 TABLET 1 TAB PO (05:06)
[2024-06-24 06:11] LABS: Basophils % (Auto) 1 % (0-2.5); Eosinophils # (Auto) 0.2 Thou/mm3 (0.0-0.5); Eosinophils % (Auto) 2 % (0-10); Hematocrit 28.4 % (41.0-53.0); Hemoglobin 9.9 g/dL (13.5-16.0); Immature Granulocytes % (Auto) 0 % (0-0); Immature Granulocytes Auto 0.03 Thou/mm3 (0.00-0.00); Lymphocytes # (Auto) 1.6 Thou/mm3 (1.0-4.8); Lymphocytes % (Auto) 20 % (10-50); Mean Corpuscular HGB Conc 34.9 g/dl (31.0-37.0); Mean Corpuscular Volume 89 fL (80-100); Monocytes # (Auto) 0.6 Thou/mm3 (0.0-0.8); Monocytes % (Auto) 7 % (0-12); Neutrophils # (Auto) 5.9 Thou/mm3 (1.8-7.7); Neutrophils % (Auto) 70 % (37-80); Nucleated Red Blood Cell % 0 /100 WBC (0); Platelet Count 218 Thou/mm3 (140-440); RDW Standard Deviation 37.3 fL (35.1-43.9); Red Blood Count 3.19 Miln/mm3 (4.50-5.90); White Blood Count 8.4 Thou/mm3 (3.8-10.6)
[2024-06-24 06:32] LABS: Anion Gap 6 (7-16); BUN/Creatinine Ratio 11 Ratio (12-20); Blood Urea Nitrogen 29 mg/dL (9-23); Calcium 8.1 mg/dL (8.3-10.6); Carbon Dioxide 23.5 mMol/L (20.0-31.0); Chloride 112 mMol/L (98-107); Creatinine (Component) 2.7 mg/dL (0.6-1.3); Estimated Creatinine Clearance 20.9 mL/min (>60); Glucose 104 mg/dL (74-106); Osmolality,Calculated 287 (275-295); Phosphorous 3.2 mg/dL (2.4-5.1); Potassium 3.9 mMol/L (3.4-5.1); Sodium 141 mMol/L (136-145); Vancomycin,Random 16.2 mcg/mL; eGFR 24 See Note
[2024-06-24 08:00] VITALS: BP 176/83; PULSE 72; RESP 19; TEMP 36.5; O2SAT 99
[2024-06-24] MEDS: INSULIN GLARGINE (Lantus) 5 UNIT/0.05 ML (PER 5 UNITS) 10 UNIT SC (08:31)
[2024-06-24] MEDS: PIPER/TAZO 3.375 GM PREMIX 3.375 GM/50 ML BAG IV ×2 (08:31→21:43)
[2024-06-24] MEDS: VANCOMYCIN/NS 500 MG IVPB 100 ML 120 MG IV (10:09)
[2024-06-24] MEDS: INSULIN LISPRO (AdmeLOG) 1 UNIT/0.01 ML UNIT SC ×2 (11:51→17:13)
[2024-06-24 11:56] VITALS: BP 142/66; PULSE 63; RESP 18; TEMP 36.8; O2SAT 98
[2024-06-24 11:58] VITALS: BP 142/66; PULSE 63
[2024-06-24] MEDS: amLODIPine BESYLATE 5 MG TABLET PO (11:58)
--- NOTE | 2024-06-24 14:41 | PD.RESPRO ---
Documentation for date of: 06/24/24 Subjective Subjective Interval history: Patient examined at bedside. No overnight events. He denies any pain, right foot in kerlix roll with no obvious bleeding or drainage. STEFFANIE resolving with Cr 2.7. A1c 9.5. Started on amlodpine 5 mg for BP control. ID recs pending for possible PO antibiotics in setting of osteomyelitis. Exam Vital Signs Temp Pulse Resp BP Pulse Ox O2 Del Method O2 Flow Rate 98.2 F 63 18 142/66 H 98 Room Air 2 06/24/24 11:56 06/24/24 11:58 06/24/24 11:56 06/24/24 11:58 06/24/24 11:56 06/24/24 11:56 06/23/24 12:00 Narrative Exam Physical Exam: GENERAL: Awake, answering questions appropriately in [place], appears stated age. HEENT: NC/AT. Moist mucosa. PERRLA/EOMI. CARDIO: Heart RRR, III/ systolic ejection murmur heard at left sternal border, no JVD. PULM: No coughing or visible SOB. Lungs CTA B/L GI: Abdomen soft, NT/ND, +BS. SKIN/MSK/EXT: Right foot in kerliex roll, no bleeding, Left BKA with prosthetic. NEURO: Oriented x3, Moves extremities x4, no focal neurologic deficits noted. Objective Labs 06/24/24 05:49 06/24/24 05:49 Labs: Laboratory Results - last 24 hr 06/24/24 05:49 WBC 8.4 RBC 3.19 L Hgb 9.9 L Hct 28.4 L MCV 89 MCH 31.0 MCHC 34.9 RDW Std Deviation 37.3 Plt Count 218 Neut % (Auto) 70 Lymph % (Auto) 20 [place] % (Auto) 7 Eos % (Auto) 2 Baso % (Auto) 1 Neut # (Auto) 5.9 Lymph # (Auto) 1.6 [place] # (Auto) 0.6 Eos # (Auto) 0.2 Baso # (Auto) 0.0 Immature Gran # (Auto) 0.03 H Absolute Nucleated RBC 0.00 Immature Gran % 0 Nucleated RBC % 0 Sodium 141 Potassium 3.9 Chloride 112 H Carbon Dioxide 23.5 Anion Gap 6 L BUN 29 H Creatinine 2.7 H Estim Creat Clear Calc 20.9 L eGFR 24 L BUN/Creatinine Ratio 11 L Glucose 104 D Calculated Osmolality 287 Calcium 8.1 L Phosphorus 3.2 Magnesium 2.0 Random Vancomycin 16.2 Quality Measures Quality Measures none Advance care planning discussed with:: patient Assessment & Plan Assessment Current Active Medications: Generic Name Dose Route Start Last Admin Trade Name Freq PRN Reason Stop Dose Admin Acetaminophen 650 mg 06/22/24 20:24 Acetaminophen 325 Mg Tablet PO 07/22/24 19:20 Q6H PRN Fever >100.4 or pain 1-3 Amlodipine Besylate 5 mg 06/24/24 11:00 06/24/24 11:58 Amlodipine Besylate 5 Mg Tablet PO 07/24/24 10:59 5 mg QDAY JACINDA Administration Dextrose 25 ml 06/22/24 19:24 Dextrose 50%-Water Inj 50 Ml Syringe IV 07/22/24 19:23 Q15MIN PRN BG 50-70 responsive npo pt Dextrose 50 ml 06/22/24 19:24 Dextrose 50%-Water Inj 50 Ml Syringe IV 07/22/24 19:23 Q15MIN PRN BG <50 OR BG <70 & pt unresponsive Glucagon 1 mg 06/22/24 19:24 Glucagon Inj 1 Mg Vial IM Q15MIN PRN BG <70, and no IV access Heparin Sodium (Porcine) 5,000 unit 06/22/24 22:00 06/24/24 13:57 Heparin Sod Inj 5000 Unit/Ml Vial SC 07/06/24 21:59 5,000 unit Q8HR JACINDA Administration Hydralazine HCl 10 mg 06/22/24 20:14 Hydralazine Inj 20 Mg/Ml Vial IV 07/22/24 20:13 Q6H PRN SBP >180 Hydromorphone HCl 1 mg 06/22/24 20:23 Hydromorphone Inj 2 Mg/Ml Vial IVP 06/27/24 20:22 Q4HR PRN Pain 7-10 Sodium Chloride 1,000 mls @ 75 mls/hr 06/22/24 19:30 06/23/24 22:24 Ns IV 07/22/24 19:29 75 mls/hr .[id number] JACINDA Administration Piperacillin/Tazobactam/Dextrose 3.375 gm in 50 mls @ 12.5 mls/hr 06/23/24 09:00 06/24/24 08:31 Zosyn IV 06/30/24 08:59 12.5 mls/hr Q12HR JACINDA Administration Vancomycin/Sodium Chloride 100 mls @ 120 mls/hr 06/24/24 10:00 06/24/24 10:09 Vancomycin/Ns 500 Mg Ivpb IV 07/01/24 09:59 120 mls/hr QDAY@1000 JACINDA Administration Insulin Glargine 10 unit 06/23/24 09:00 06/24/24 08:31 Insulin Glargine (Lantus) 5 Unit/0.05 Ml (Per 5 Units) SC 07/23/24 08:59 10 unit QDAY JACINDA Administration Insulin Human Lispro 0 unit 06/23/24 08:30 06/24/24 11:51 Insulin Lispro (Admelog) 1 Unit/0.01 Ml Unit SC 07/23/24 07:29 3 unit AC JACINDA Administration Protocol Oxycodone/Acetaminophen 1 tab 06/22/24 20:24 06/24/24 05:06 Oxycodone/Apap 5/325 Tablet PO 06/27/24 19:54 1 tab Q6HR PRN Administration Pain 4-6 Pharmacy Consult 1 each 06/23/24 09:00 Vancomycin Pharmacy To Dose 1 Each Each IV 07/23/24 08:59 QDAY PRN PROTOCOL Sennosides 1 tab 06/22/24 23:07 Senna Tablet PO 07/22/24 23:06 QDAY PRN CONSTIPATION Protocol Plan 74-year-old Citizen [place]-speaking male with past medical history of hypertension, [id number] type 2 diabetes, 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 #Acute osteomyelitis, right fifth metatarsal #Chronic osteomyelitis As per HPI, patient has been having 4 days of progressive right foot pain with open lesion that started this morning Patient has been having wound for several years now likely secondary to poorly controlled type 2 diabetes Patient denies having any trauma to the area, denies having any fever/chills or any other concerning cardiac symptoms In the ED, patient presented hypotensive, afebrile but with a temperature of 99.4 ?F, heart rate of 91 WBC of 10.6, ESR of 80 and CRP of 6.9, Pro-Josue of 0.31 In the ED, patient was given vancomycin and started on NS at 75 cc an hour Foot x-ray showed chronic osteomyelitis of the 2nd and 3rd metatarsals and early acute osteomyelitis of the distal fifth metatarsal with soft tissue infection at the fifth metatarsal phalangeal joint. Plan: -Patient on IV Vancomycin (pharmacy to dose) and IV Zosyn 3.375 every 12 (06/22- -Multimodal pain management with Tylenol, oxycodone and dilaudid -Wound referral -Follow blood cultures -General Surgery, Dr. Alfonso, consulted appreciate recommendations: no need for surgery, may start PO antibiotics. -ID consulted: recs pending #STEFFANIE on CKD stage IV Likely secondary to poorly controlled type 2 diabetes along with hypertension Patient has known history of CKD as noted from EMR with creatinine baseline of 1.9-2.0 Patient presenting with creatinine of 3.3 likely secondary to osteomyelitis infection Patient on home lisinopril, pending official med rec Plan: -Continue maintenance IV fluids -Avoid nephrotoxic agents -Renally dose medications --up with morning labs #Aks-ctxjqyr-mqsgkxjtd type 2 diabetes Longstanding history of type 2 diabetes, patient states that he is on Rybelsus and Januvia pending official med rec Patient's fingerstick blood glucose have been in the 260s and A1c is 9.5 Plan: -Insulin glargine 10 units at bedtime -Sliding scale insulin step 3 -carb consistent low diet -Diabetic education #Hypertension Chronic medical condition, patient is on home lisinopril pending official med rec Plan: -Hold LIANET/ARB in the setting of STEFFANIE on CKD -As needed hydralazine 10 mg every 6 if systolic blood pressures greater than 180 -amlodipine 5mg daily #Hyperlipidemia Chronic medical condition, patient apparently on atorvastatin pending official med rec Plan: -atorvastatin 20mg daily #Normocytic anemia Likely multifactorial and to kidney disease (anemia of chronic disease) and iron deficiency anemia, vitamin deficiency, less likely to be hemolytic anemia, bone marrow malignancy Hemoglobin of 11.5 with MCV of 91, RDW within normal limits and platelets stable at 253 Iron 31, TIBC 166, iron saturation 18%, onset iron binding 135, ferritin 240 Plan: Follow CBC in a.m. #Tobacco dependence Patient has been smoking <1 pack a day for ~60 years; since age 14 Roughly 40-pack year history Plan: -Nicotine patch -Follow-up with PCP for low-dose CT for lung cancer screening Hospital Management: Lines: PIV Diet: Carb consistent low Bowel: Senna as needed GI prophylaxis: Not needed DVT prophylaxis: Heparin subcu Code: DNR Case discussed with Attending Dr. Bragg. Tina Silva, PGY1
[2024-06-24 16:00] VITALS: BP 158/76; PULSE 67; RESP 18; TEMP 36.3; O2SAT 99
[2024-06-24] MEDS: SODIUM CHLORIDE 0.9% 1000 ML 1,000 ML 75 ML IV (17:14)
[2024-06-25] VITALS (7 sets, daily range): BP systolic 124–172; BP diastolic 64–75; PULSE 59–67; RESP 15–18; TEMP 36.2–36.9; O2SAT 98–100
[2024-06-25] MEDS: oxyCODONE/APAP 5/325 TABLET 1 TAB PO (01:26)
[2024-06-25 05:32] LABS: Basophils % (Auto) 0 % (0-2.5); Eosinophils # (Auto) 0.2 Thou/mm3 (0.0-0.5); Eosinophils % (Auto) 2 % (0-10); Hematocrit 27.6 % (41.0-53.0); Hemoglobin 9.5 g/dL (13.5-16.0); Immature Granulocytes % (Auto) 0 % (0-0); Immature Granulocytes Auto 0.02 Thou/mm3 (0.00-0.00); Lymphocytes # (Auto) 1.7 Thou/mm3 (1.0-4.8); Lymphocytes % (Auto) 22 % (10-50); Mean Corpuscular HGB Conc 34.4 g/dl (31.0-37.0); Mean Corpuscular Hemoglobin 31.8 pg (25.0-35.0); Mean Corpuscular Volume 92 fL (80-100); Monocytes # (Auto) 0.5 Thou/mm3 (0.0-0.8); Monocytes % (Auto) 7 % (0-12); Neutrophils # (Auto) 5.3 Thou/mm3 (1.8-7.7); Neutrophils % (Auto) 68 % (37-80); Nucleated Red Blood Cell % 0 /100 WBC (0); Platelet Count 233 Thou/mm3 (140-440); RDW Standard Deviation 39.8 fL (35.1-43.9); Red Blood Count 2.99 Miln/mm3 (4.50-5.90); White Blood Count 7.7 Thou/mm3 (3.8-10.6)
[2024-06-25] MEDS: HEPARIN SOD INJ 5000 UNIT/ML VIAL SC ×3 (05:45→21:22)
[2024-06-25 05:59] LABS: Anion Gap 7 (7-16); BUN/Creatinine Ratio 10 Ratio (12-20); Blood Urea Nitrogen 28 mg/dL (9-23); Calcium 8.5 mg/dL (8.3-10.6); Carbon Dioxide 23.8 mMol/L (20.0-31.0); Chloride 112 mMol/L (98-107); Creatinine (Component) 2.9 mg/dL (0.6-1.3); Estimated Creatinine Clearance 19.5 mL/min (>60); Glucose 141 mg/dL (74-106); Osmolality,Calculated 292 (275-295); Phosphorous 3.4 mg/dL (2.4-5.1); Sodium 143 mMol/L (136-145); eGFR 22 See Note
[2024-06-25] MEDS: PIPER/TAZO 3.375 GM PREMIX 3.375 GM/50 ML BAG IV (09:10)
[2024-06-25] MEDS: INSULIN GLARGINE (Lantus) 5 UNIT/0.05 ML (PER 5 UNITS) 10 UNIT SC (09:13)
[2024-06-25] MEDS: SENNA TABLET 1 TAB PO (09:14)
[2024-06-25] MEDS: amLODIPine BESYLATE 5 MG TABLET PO (09:14)
--- NOTE | 2024-06-25 09:20 | PC.SS ---
Addendum entered by Maci Cuello 06/25/24 14:46: Pt is requiring PICC line for IV antibiotic, Rocephin 2rm 1 X day until August 06, 2024. Pt is agreeable to SNF for short term. Pt has not followed up with PCP for about 2 years. Original Note: Follow up note: Pending Dr. Bauer recommendations. Pt is on IV antibiotic.
--- NOTE | 2024-06-25 09:32 | ESPR_ITS ---
Subjective Subjective Interval history: 74 y/o with osteo of foot noted on imaging. should be on rocephin 2 gm/day iv and po doxy 100 bid for 6 weeks. with credit for time here on vanco/zosyn. Exam Vital Signs Temp Pulse Resp BP Pulse Ox O2 Del Method O2 Flow Rate 97.1 F 62 15 132/70 H 98 Room Air 2 06/25/24 07:14 06/25/24 09:14 06/25/24 07:14 06/25/24 09:14 06/25/24 07:14 06/25/24 07:14 06/23/24 12:00 Narrative Exam see dictation. Objective - Internal Medicine Labs 06/25/24 04:23 06/25/24 04:23 Labs: Laboratory Results - last 24 hr 06/25/24 04:23 WBC 7.7 RBC 2.99 L Hgb 9.5 L Hct 27.6 L MCV 92 MCH 31.8 MCHC 34.4 RDW Std Deviation 39.8 Plt Count 233 Neut % (Auto) 68 Lymph % (Auto) 22 [place] % (Auto) 7 Eos % (Auto) 2 Baso % (Auto) 0 Neut # (Auto) 5.3 Lymph # (Auto) 1.7 [place] # (Auto) 0.5 Eos # (Auto) 0.2 Baso # (Auto) 0.0 Immature Gran # (Auto) 0.02 H Absolute Nucleated RBC 0.00 Immature Gran % 0 Nucleated RBC % 0 Sodium 143 Potassium 4.0 Chloride 112 H Carbon Dioxide 23.8 Anion Gap 7 BUN 28 H Creatinine 2.9 H Estim Creat Clear Calc 19.5 L eGFR 22 L BUN/Creatinine Ratio 10 L Glucose 141 H Calculated Osmolality 292 Calcium 8.5 Phosphorus 3.4 Magnesium 2.0 Assessment & Plan A&P Narrative osteo of foot dm II, a1c 9.5 noted. needs to be better shukri, creat noted. if this fails,then amputation likely, if he has an amputation here that is ok but then rx likely to be much shorter please provide rocephin 2 gm/day iv thru 08/06 and doxy 100 mg po bid for the same duration ok to f/u with weekly cbc, renal panel, esr and line removal at end of rx I can not see him in f/u. have him f/u with outpt primary, they need to control dm anyway as the a1c seems high Time Spent With Patient Time: Total time spent is greater than 50% in coordination of care (as documented) at patient's floor/unit and/or counseling patient:
[2024-06-25] MEDS: SODIUM CHLORIDE 0.9% 1000 ML 1,000 ML 100 ML IV (10:38)
[2024-06-25] MEDS: cefTRIAXone 2 GM in SODIUM CHLORIDE 0.9% (Popper) 50 ML IV (10:39)
--- NOTE | 2024-06-25 11:16 | XR_ITS ---
Examination: Arterial duplex lower extremity study. Date and time of exam: June 25, 2024 1336 hours INDICATIONS: Diabetic with nonhealing wound right foot this week Findings: Duplex sonographic imaging of the lower extremity arteries using B-mode/Hart scale imaging and Doppler spectral analysis and color flow. Ankle brachial indices have been recorded. Right common femoral artery demonstrates biphasic flow. Right superficial femoral artery demonstrates biphasic flow. Right popliteal artery demonstrates biphasic flow. Right posterior tibial artery demonstrated monophasic flow. Right ankle/brachial index is 1.0. Left common femoral artery demonstrates biphasic flow. Left superficial femoral artery demonstrates monophasic flow. Left popliteal artery demonstrates monophasic flow. Left posterior tibial artery demonstrated monophasic flow. Impression: Significant bilateral peripheral obstructive arterial disease, consider correlation with CTA abdominal aorta iliofemoral runoff follow-up
[2024-06-25] MEDS: INSULIN LISPRO (AdmeLOG) 1 UNIT/0.01 ML UNIT SC ×2 (11:41→17:00)
--- NOTE | 2024-06-25 13:46 | ESCONSULT_ITS ---
RE: JAYLON CARDENAS : 1950 DATE OF CONSULTATION: 06/25/2024 REFERRING PHYSICIAN: Dr. Zaragoza REASON FOR CONSULTATION: A 74-year-old with diabetes, chronic kidney disease and osteomyelitis of the right foot. HISTORY OF PRESENT ILLNESS: The patient is an unfortunate 74-year-old man. He was started on treatment soon after admission in the evening of 06/22. As a result of counting his treatment from 06/23 on as being effective. Cultures are negative, so we are treating somewhat empirically, so usually I give Rocephin and doxycycline for that. Osteomyelitis of the foot is noted on imaging. The patient has a history of diabetes and a well-controlled A1c is over 9 and controlled hypertension. He lives by himself and stopped smoking about 30 years ago. He has chronic kidney disease, so the vancomycin is somewhat problematic as is the Zosyn, so I am going to go ahead and change him to Rocephin and doxycycline. He seems somewhat unaware of his chronic kidney disease. His creatinine does seem to be going up since 10/2006. It has been up since then, but a little more lately. His creatinine is 2.9 as of today. He probably has some chronic kidney disease, may be partially acute kidney injury, but also some chronic kidney disease as well. SURGICAL HISTORY: Includes left soymf-cqa-ijpn amputation and right digital amputations. He has not had an arterial Doppler study, but probably should so I will order one. IMMUNIZATIONS: Last tetanus was about two years ago. He has not had COVID-19 vaccination and denies pneumococcal vaccination, although he is 72 years of age. FAMILY HISTORY: Unremarkable. SOCIAL HISTORY: He lives by himself. He quit smoking about 30 years ago as mentioned. PHYSICAL EXAMINATION: The patient looks well. He denies any problems with his feet or any pain anywhere. He speaks only Armenian, so I tried to use my Armenian, which he did understand fairly well. The bedside nurse trainees also use their Armenian and seemed to understand a little bit better. Exam is otherwise benign. The right foot is wrapped with the left kxpkq-yrr-mguj amputation and appears well healed. The rest of his exam is benign. Abdomen in particular is benign. RECOMMENDATIONS: I took the liberty of changing his antibiotics to Rocephin and doxycycline with the pharmacy changed the duration of the doxycycline and Rocephin to , but you can probably go through six weeks from this initiation, which would be the through the August 06. I am happy to see him again as needed, but tried little I would do in the office, so follow-up could be with the primary. Please get a weekly CBC, renal panel, and sed rate on the treatment. This is not nephrotoxic. Unfortunately, his diabetic control is a crucial issue, so he needs to improve that. I will follow him up as needed. DT: 11:18:59 TT: 12:40:00 Ref: [id number] - TID: [id number] MTDD
--- NOTE | 2024-06-25 13:55 | ESPR_ITS ---
Documentation for date of: 06/25/24 Subjective Subjective Interval history: Patient examined at bedside. No overnight events. He denies any pain, right foot in kerlix roll with no obvious bleeding or drainage. PICC line was placed this morning for Rocefin 2g daily + doxycycline 100mg BID PO until 08/06. STEFFANIE slightly improved with Cr 2.7 from 2.9 yesterday. A1c 9.5. Nephrology consulted for STEFFANIE on CKD. Workup ordered including renal u/s and urine protein, Cr. Increase amlodpine to 10 mg daily as BP still elevated. continuing to monitor kidney function. Exam Vital Signs Temp Pulse Resp BP Pulse Ox O2 Del Method O2 Flow Rate 98.1 F 60 18 132/68 H 98 Room Air 2 06/25/24 11:36 06/25/24 11:36 06/25/24 11:36 06/25/24 11:36 06/25/24 11:36 06/25/24 11:36 06/23/24 12:00 Narrative Exam GENERAL: Awake, answering questions appropriately in Polish, appears stated age. HEENT: NC/AT. Moist mucosa. PERRLA/EOMI. CARDIO: Heart RRR, no JVD. PULM: No coughing or visible SOB. Lungs CTA B/L GI: Abdomen soft, NT/ND, +BS. SKIN/MSK/EXT: Right foot in kerliex roll, no bleeding, Left BKA with prosthetic. NEURO: Oriented x3, Moves extremities x4, no focal neurologic deficits noted. Objective Labs 06/26/24 08:35 06/26/24 08:35 Labs: Laboratory Results - last 24 hr 06/25/24 04:23 WBC 7.7 RBC 2.99 L Hgb 9.5 L Hct 27.6 L MCV 92 MCH 31.8 MCHC 34.4 RDW Std Deviation 39.8 Plt Count 233 Neut % (Auto) 68 Lymph % (Auto) 22 Haywood % (Auto) 7 Eos % (Auto) 2 Baso % (Auto) 0 Neut # (Auto) 5.3 Lymph # (Auto) 1.7 Haywood # (Auto) 0.5 Eos # (Auto) 0.2 Baso # (Auto) 0.0 Immature Gran # (Auto) 0.02 H Absolute Nucleated RBC 0.00 Immature Gran % 0 Nucleated RBC % 0 Sodium 143 Potassium 4.0 Chloride 112 H Carbon Dioxide 23.8 Anion Gap 7 BUN 28 H Creatinine 2.9 H Estim Creat Clear Calc 19.5 L eGFR 22 L BUN/Creatinine Ratio 10 L Glucose 141 H Calculated Osmolality 292 Calcium 8.5 Phosphorus 3.4 Magnesium 2.0 Quality Measures Quality Measures none Advance care planning discussed with:: patient Assessment & Plan Assessment Current Active Medications: Generic Name Dose Route Start Last Admin Trade Name Freq PRN Reason Stop Dose Admin Acetaminophen 650 mg 06/22/24 20:24 Acetaminophen 325 Mg Tablet PO 07/22/24 19:20 Q6H PRN Fever >100.4 or pain 1-3 Amlodipine Besylate 5 mg 06/24/24 11:00 06/25/24 09:14 Amlodipine Besylate 5 Mg Tablet PO 07/24/24 10:59 5 mg QDAY JACINDA Administration Dextrose 25 ml 06/22/24 19:24 Dextrose 50%-Water Inj 50 Ml Syringe IV 07/22/24 19:23 Q15MIN PRN BG 50-70 responsive npo pt Dextrose 50 ml 06/22/24 19:24 Dextrose 50%-Water Inj 50 Ml Syringe IV 07/22/24 19:23 Q15MIN PRN BG <50 OR BG <70 & pt unresponsive Doxycycline Hyclate 100 mg 06/25/24 21:00 Doxycycline 100 Mg Tablet PO 07/02/24 20:59 BID JACINDA Glucagon 1 mg 06/22/24 19:24 Glucagon Inj 1 Mg Vial IM Q15MIN PRN BG <70, and no IV access Heparin Sodium (Porcine) 5,000 unit 06/22/24 22:00 06/25/24 05:45 Heparin Sod Inj 5000 Unit/Ml Vial SC 07/06/24 21:59 5,000 unit Q8HR JACINDA Administration Hydralazine HCl 10 mg 06/22/24 20:14 Hydralazine Inj 20 Mg/Ml Vial IV 07/22/24 20:13 Q6H PRN SBP >180 Hydromorphone HCl 1 mg 06/22/24 20:23 Hydromorphone Inj 2 Mg/Ml Vial IVP 06/27/24 20:22 Q4HR PRN Pain 7-10 Sodium Chloride 1,000 mls @ 75 mls/hr 06/22/24 19:30 06/24/24 17:14 Ns IV 07/22/24 19:29 75 mls/hr .[id number] JACINDA Administration Sodium Chloride 1,000 mls @ 100 mls/hr 06/25/24 08:23 06/25/24 10:38 Ns IV 06/25/24 18:22 100 mls/hr .Q10H ONE Administration Ceftriaxone Sodium 2 gm/ 50 mls @ 100 mls/hr 06/25/24 09:28 06/25/24 10:39 Sodium Chloride IV 07/02/24 09:27 100 mls/hr QDAY JACINDA Administration Insulin Glargine 10 unit 06/23/24 09:00 06/25/24 09:13 Insulin Glargine (Lantus) 5 Unit/0.05 Ml (Per 5 Units) SC 07/23/24 08:59 10 unit QDAY JACINDA Administration Insulin Human Lispro 0 unit 06/23/24 08:30 06/25/24 11:41 Insulin Lispro (Admelog) 1 Unit/0.01 Ml Unit SC 07/23/24 07:29 3 unit AC JACINDA Administration Protocol Oxycodone/Acetaminophen 1 tab 06/22/24 20:24 06/25/24 01:26 Oxycodone/Apap 5/325 Tablet PO 06/27/24 19:54 1 tab Q6HR PRN Administration Pain 4-6 Pharmacy Consult 1 each 06/23/24 09:00 Vancomycin Pharmacy To Dose 1 Each Each IV 07/23/24 08:59 QDAY PRN PROTOCOL Sennosides 1 tab 06/22/24 23:07 06/25/24 09:14 Senna Tablet PO 07/22/24 23:06 1 tab QDAY PRN Administration CONSTIPATION Protocol Plan 74-year-old Polish-speaking male with past medical history of hypertension, [id number]-otnlfmrin type 2 diabetes, 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 #Acute osteomyelitis, right fifth metatarsal #Chronic osteomyelitis #PICC line In the ED, patient presented hypotensive, afebrile but with a temperature of 99.4 ?F, heart rate of 91 WBC of 10.6, ESR of 80 and CRP of 6.9, Pro-Josue of 0.31 Foot x-ray showed chronic osteomyelitis of the 2nd and 3rd metatarsals and early acute osteomyelitis of the distal fifth metatarsal with soft tissue infection at the fifth metatarsal phalangeal joint. Blood cultures negative at 48 hours Plan: -Multimodal pain management with Tylenol, oxycodone and dilaudid -Wound referral -General Surgery, Dr. Alfonso, consulted appreciate recommendations: no need for surgery, may start PO antibiotics. -ID recs: to place PICC line for Rocefin 2g daily (06/25) + doxycycline 100mg BID PO (06/25) until 08/06. #STEFFANIE on CKD stage IV Likely secondary to poorly controlled type 2 diabetes along with hypertension Patient has known history of CKD as noted from EMR with creatinine baseline of 1.9-2.0 Patient presenting with creatinine of 3.3 Plan: -nephrology consulted -renal u/s pending -urine protein: creatnine pending -Continue maintenance IV fluids -Avoid nephrotoxic agents -Renally dose medications -daily renal panel #[id number]-[id number] type 2 diabetes, poorly controlled Longstanding history of type 2 diabetes, patient states that he is on semaglutide and Jardiance. Patient's fingerstick blood glucose have been in the 260s and A1c is 9.5 Plan: -Insulin glargine 10 units at bedtime -Sliding scale insulin step 3 -carb consistent low diet -Diabetic education -should be discharged with ACEI #Hypertension Chronic medical condition, patient is on home lisinopril pending official med rec Plan: -Hold LIANET/ARB in the setting of STEFFANIE on CKD -As needed hydralazine 10 mg every 6 if systolic blood pressures greater than 180 -amlodipine 10 mg daily #Hyperlipidemia Chronic medical condition, patient apparently on atorvastatin pending official med rec Plan: -atorvastatin 20mg daily #Normocytic anemia Likely multifactorial and to kidney disease (anemia of chronic disease) and iron deficiency anemia, vitamin deficiency, less likely to be hemolytic anemia, bone marrow malignancy Hemoglobin of 11.5 with MCV of 91, RDW within normal limits and platelets stable at 253 Iron 31, TIBC 166, iron saturation 18%, onset iron binding 135, ferritin 240 Plan: Follow CBC in a.m. #Tobacco dependence Patient has been smoking <1 pack a day for ~60 years; since age 14 Roughly 40-pack year history Plan: -Nicotine patch -Follow-up with PCP for low-dose CT for lung cancer screening Hospital Management: Lines: PIV Diet: Carb consistent low Bowel: Senna as needed GI prophylaxis: Not needed DVT prophylaxis: Heparin subcu Code: DNR Case discussed with Attending Dr. Solorio. Tina Silva, PGY1 Attending Provider Attestation/Addendum I have discussed and was present for the essential components of the history, physical examination, diagnosis, and treatment plan with the resident. I agree with the patient's care as documented by the resident and amended herein by me. Shekhar Solorio, DO. Although this document has been carefully reviewed, there may still be some phonetic and other typographical errors. These errors are purely grammatical due to imperfections in the software program and should not be construed in any way to compromise the substance of the patient's medical care during this visit.
--- NOTE | 2024-06-25 15:27 | PC.SS ---
PASRR assessment completed. Per bedside nurse, Grace pt is not on psych, anxiety, or depression medications.
--- NOTE | 2024-06-25 16:03 | PC.SS ---
SS met with patient regarding his d/c plan.? Pt is alert/oriented.? Pt was admitted for Osteomyelitis.? Pt confirmed demographic and contact information is correct on facesheet.? Pt resides alone.? Pt ambulates independently without assistance or DME.? Pt is ok with all ADLs.? Pt named his cousin, Bambi [place] medical decision maker if he is unable.? Pt is aware he will require IV antibiotic at d/c.?Pt states he has not followed up with PCP for 2 years.? SS provided pt with verbal options for d/c to home or SNF.? Patient?s choice is SNF due to not having assistance at home to help administer the IV antibiotic.? Pt is requiring IV Rocephin 2grm 1 X day until August 06, 2024.? Patient's choice is [facility]. D/C plan:? SNF: [facility] Next of Kin:? Bambi Dc, cousin, phone# [phone] PCP:? ?[facility] Address:? Correct on facesheet
[2024-06-25] MEDS: DOXYCYCLINE 100 MG TABLET PO (21:21)
[2024-06-25] MEDS: SODIUM CHLORIDE 0.9% 1000 ML 1,000 ML 75 ML IV (21:26)
[2024-06-26] VITALS (12 sets, daily range): BP systolic 141–190; BP diastolic 64–86; PULSE 69–84; RESP 15–19; TEMP 36.4–37.1; O2SAT 98–100
[2024-06-26] MEDS: HEPARIN SOD INJ 5000 UNIT/ML VIAL SC ×3 (05:16→21:03)
--- NOTE | 2024-06-26 08:03 | ESPR_ITS ---
<Statement entered by Raad Torres MD - 07/03/24 08:07> I discussed with and supervised the data analysis intern physician involved in the care of this patient. Patient assessment and plan was discussed with entire medicine team, including my attending. I agree with the assessment and plan as documented by data analysis intern doctor. Patient care was discussed with my attending physician Dr. Lyndsey Torres, PGY-2 Documentation for date of: 07/03/24 Subjective Subjective Interval history: Patient examined at bedside. No overnight events. He denies any pain, right foot in kerlix roll with no obvious bleeding or drainage. PICC line was placed this morning for Rocefin 2g daily + doxycycline 100mg BID PO until 08/06. Nephrology consulted for STEFFANIE on CKD. Workup ordered including renal u/s and urine protein, Cr. Increase amlodpine to 10 mg daily as BP still elevated. continuing to monitor kidney function. Exam Vital Signs Temp Pulse Resp BP Pulse Ox O2 Del Method O2 Flow Rate 98.2 F 70 16 116/48 L 100 Room Air 2 06/27/24 16:00 06/27/24 16:00 06/27/24 16:00 06/27/24 16:00 06/27/24 16:00 06/27/24 16:06/25/24 16:00 Narrative Exam GENERAL: Awake, answering questions appropriately in Amharic, appears stated age. HEENT: NC/AT. Moist mucosa. PERRLA/EOMI. CARDIO: Heart RRR, no JVD. PULM: No coughing or visible SOB. Lungs CTA B/L GI: Abdomen soft, NT/ND, +BS. SKIN/MSK/EXT: Right foot in kerliex roll, no bleeding, Left BKA with prosthetic. NEURO: Oriented x3, Moves extremities x4, no focal neurologic deficits noted. Objective Labs 06/27/24 07:24 06/27/24 05:05 Quality Measures Quality Measures VTE prophylaxis Advance care planning discussed with:: patient Assessment & Plan Assessment Current Active Medications: Generic Name Dose Route Start Last Admin Trade Name Freq PRN Reason Stop Dose Admin Acetaminophen 650 mg 06/22/24 20:24 Acetaminophen 325 Mg Tablet PO 07/22/24 19:20 Q6H PRN Fever >100.4 or pain 1-3 Amlodipine Besylate 5 mg 06/24/24 11:00 06/25/24 09:14 Amlodipine Besylate 5 Mg Tablet PO 07/24/24 10:59 5 mg QDAY JACINDA Administration Dextrose 25 ml 06/22/24 19:24 Dextrose 50%-Water Inj 50 Ml Syringe IV 07/22/24 19:23 Q15MIN PRN BG 50-70 responsive npo pt Dextrose 50 ml 06/22/24 19:24 Dextrose 50%-Water Inj 50 Ml Syringe IV 07/22/24 19:23 Q15MIN PRN BG <50 OR BG <70 & pt unresponsive Doxycycline Hyclate 100 mg 06/25/24 21:00 Doxycycline 100 Mg Tablet PO 07/02/24 20:59 BID JACINDA Glucagon 1 mg 06/22/24 19:24 Glucagon Inj 1 Mg Vial IM Q15MIN PRN BG <70, and no IV access Heparin Sodium (Porcine) 5,000 unit 06/22/24 22:00 06/25/24 05:45 Heparin Sod Inj 5000 Unit/Ml Vial SC 07/06/24 21:59 5,000 unit Q8HR JACINDA Administration Hydralazine HCl 10 mg 06/22/24 20:14 Hydralazine Inj 20 Mg/Ml Vial IV 07/22/24 20:13 Q6H PRN SBP >180 Hydromorphone HCl 1 mg 06/22/24 20:23 Hydromorphone Inj 2 Mg/Ml Vial IVP 06/27/24 20:22 Q4HR PRN Pain 7-10 Sodium Chloride 1,000 mls @ 75 mls/hr 06/22/24 19:30 06/24/24 17:14 Ns IV 07/22/24 19:29 75 mls/hr .[id number] JACINDA Administration Sodium Chloride 1,000 mls @ 100 mls/hr 06/25/24 08:23 06/25/24 10:38 Ns IV 06/25/24 18:22 100 mls/hr .Q10H ONE Administration Ceftriaxone Sodium 2 gm/ 50 mls @ 100 mls/hr 06/25/24 09:28 06/25/24 10:39 Sodium Chloride IV 07/02/24 09:27 100 mls/hr QDAY JACINDA Administration Insulin Glargine 10 unit 06/23/24 09:00 06/25/24 09:13 Insulin Glargine (Lantus) 5 Unit/0.05 Ml (Per 5 Units) SC 07/23/24 08:59 10 unit QDAY JACINDA Administration Insulin Human Lispro 0 unit 06/23/24 08:30 06/25/24 11:41 Insulin Lispro (Admelog) 1 Unit/0.01 Ml Unit SC 07/23/24 07:29 3 unit AC JACINDA Administration Protocol Oxycodone/Acetaminophen 1 tab 06/22/24 20:24 06/25/24 01:26 Oxycodone/Apap 5/325 Tablet PO 06/27/24 19:54 1 tab Q6HR PRN Administration Pain 4-6 Pharmacy Consult 1 each 06/23/24 09:00 Vancomycin Pharmacy To Dose 1 Each Each IV 07/23/24 08:59 QDAY PRN PROTOCOL Sennosides 1 tab 06/22/24 23:07 06/25/24 09:14 Senna Tablet PO 07/22/24 23:06 1 tab QDAY PRN Administration CONSTIPATION Protocol Plan 74-year-old Amharic-speaking male with past medical history of hypertension, dio-dtnjauv-oivfudcav type 2 diabetes, 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 #Acute osteomyelitis, right fifth metatarsal #Chronic osteomyelitis #PICC line In the ED, patient presented hypotensive, afebrile but with a temperature of 99.4 ?F, heart rate of 91 WBC of 10.6, ESR of 80 and CRP of 6.9, Pro-Josue of 0.31 Foot x-ray showed chronic osteomyelitis of the 2nd and 3rd metatarsals and early acute osteomyelitis of the distal fifth metatarsal with soft tissue infection at the fifth metatarsal phalangeal joint. Blood cultures negative at 48 hours Plan: -Multimodal pain management with Tylenol, oxycodone and dilaudid -Wound referral -General Surgery, Dr. Alfonso, consulted appreciate recommendations: no need for surgery, may start PO antibiotics. -ID recs: to place PICC line for Rocefin 2g daily (06/25) + doxycycline 100mg BID PO (06/25) until 08/06. #STEFFANIE on CKD stage IV Likely secondary to poorly controlled type 2 diabetes along with hypertension Patient has known history of CKD as noted from EMR with creatinine baseline of 1.9-2.0 Patient presenting with creatinine of 3.3 Plan: -nephrology consulted -renal u/s pending -urine protein: creatnine pending -Continue maintenance IV fluids -Avoid nephrotoxic agents -Renally dose medications -daily renal panel #Mlr-hczxmdd-lisaiqaqk type 2 diabetes, poorly controlled Longstanding history of type 2 diabetes, patient states that he is on semaglutide and Jardiance. Patient's fingerstick blood glucose have been in the 260s and A1c is 9.5 Plan: -Insulin glargine 10 units at bedtime -Sliding scale insulin step 3 -carb consistent low diet -Diabetic education -should be discharged with ACEI #Hypertension Chronic medical condition, patient is on home lisinopril pending official med rec Plan: -Hold LIANET/ARB in the setting of STEFFANIE on CKD -As needed hydralazine 10 mg every 6 if systolic blood pressures greater than 180 -amlodipine 10 mg daily #Hyperlipidemia Chronic medical condition, patient apparently on atorvastatin pending official med rec Plan: -atorvastatin 20mg daily #Normocytic anemia Likely multifactorial and to kidney disease (anemia of chronic disease) and iron deficiency anemia, vitamin deficiency, less likely to be hemolytic anemia, bone marrow malignancy Hemoglobin of 11.5 with MCV of 91, RDW within normal limits and platelets stable at 253 Iron 31, TIBC 166, iron saturation 18%, onset iron binding 135, ferritin 240 Plan: Follow CBC in a.m. #Tobacco dependence Patient has been smoking <1 pack a day for ~60 years; since age 14 Roughly 40-pack year history Plan: -Nicotine patch -Follow-up with PCP for low-dose CT for lung cancer screening Hospital Management: Lines: PIV Diet: Carb consistent low Bowel: Senna as needed GI prophylaxis: Not needed DVT prophylaxis: Heparin subcu Code: DNR Case discussed with Attending Dr. Solorio. Tina Silva, PGY1
--- NOTE | 2024-06-26 08:10 | PC.NURSE ---
Dr. Melissa stone to give PO medications with small sip of water; BP and antibiotic.
[2024-06-26] MEDS: amLODIPine BESYLATE 5 MG TABLET PO (08:48)
[2024-06-26] MEDS: DOXYCYCLINE 100 MG TABLET PO ×2 (08:49→21:02)
[2024-06-26] MEDS: cefTRIAXone 2 GM in SODIUM CHLORIDE 0.9% (Popper) 50 ML IV (08:50)
[2024-06-26 09:23] LABS: Vancomycin,Trough 9.8 mcg/mL (5.0-10.0)
--- NOTE | 2024-06-26 09:38 | PC.SS ---
SS has sent inquiry to the local SNF using [facility]. Pt is requiring IV antibiotic, Rocephin 2grm 1 X day until August 06, 2024.
[2024-06-26] MEDS: oxyCODONE/APAP 5/325 TABLET 1 TAB PO (09:57)
--- NOTE | 2024-06-26 10:45 | PC.NURSE ---
report given to Faustino RN, pt alert and oriented x3, pt transfer to [facility] via reece accompanied by Faustino SHAIKH.
[2024-06-26] MEDS: hydrALAZINE INJ 20 MG/ML VIAL 10 MG IV (10:56)
[2024-06-26] MEDS: HEPARIN SOD LOCK SYR 100 UNIT/ML 500 UNIT STFIELD (11:33)
[2024-06-26] MEDS: LIDOCAINE INJ PF 1% 30 ML VIAL EPID (11:33)
--- NOTE | 2024-06-26 11:41 | PC.CC ---
Received order for HH with IV antibiotics. Reviewed EMR, confirmed with SS, pt will be going to SNF, doctor was made aware to cancel HH order.
--- NOTE | 2024-06-26 11:46 | PC.NURSE ---
Report received from Faustino RN at 1143.
--- NOTE | 2024-06-26 11:48 | XR_ITS ---
Examination: Retroperitoneal ultrasound, complete Technique: Multiple high resolution grayscale images of the retroperitoneum obtained, including kidneys and bladder. Exam date and time:June 26, 2024 1313 hours Comparison October 07, 2020 INDICATIONS: Diagnosis chronic kidney disease 4 years ago FINDINGS: Right kidney 10.0 cm cortex 1.7 cm Lower pole cyst 35mm Moderate renal parenchymal scar formation Left kidney 9.9 cm cortex 1.4 cm Midpole cyst 20 mm Moderate renal parenchymal scar formation No hydronephrosis No bladder mass or bladder calculi, bladder prevoid volume 259 cc Significant prostatomegaly volume 51.2 cc no prostate nodules IMPRESSION: Moderate bilateral renal parenchymal scar formation Bilateral renal cortical thinning No hydronephrosis Prostatomegaly, 51 cc, no prostate nodules
--- NOTE | 2024-06-26 11:57 | PC.NURSE ---
pt back in room at 1115, alert and oriented x3, denies being nausea.
--- NOTE | 2024-06-26 12:55 | PC.NURSE ---
i brought patient down to cath-lab via gurney after receiving report from NEEL Hines patient stable and on room air, initially patient BP was 190/86 on left arm, then switched BP cuff to right arm and BP was 183/82 patient had hydralazine 10MG IVP available to give, 10MG hydralazine was given after Hydralazine was given i took patient to IR for PICC line insertion, consent received from patient and patient was placed in supine position on the bed, Tech prepped patient and when MD arrived a time out was done with the team, once procedure was done MD gave me a verbal order to may Use the picc line, report given to NEEL Hines PICC line card information placed in patients zipper/pouch in the chart see EMR for medications given
--- NOTE | 2024-06-26 13:19 | ESCONSULT_ITS ---
HPI Data of Consult Consult date: 06/26/24 Requesting Physician: Thong Solorio DO Admitting Provider: Chad Zaragoza MD Attending Provider: Thong Solorio DO Primary Care Provider: Sorin Lyn MD Consult Narrative Reason for consult: STEFFANIE History of present illness: Ms. Arcos is a 74-year-old male PMHx of longstanding IDDM, HTN, HLD, tobacco dependency, left leg BKA, admitted for osteomyelitis of metatarsals of the right foot. On admission, CR 3.3 (baseline around 2), BUN 35, GFR 19, GLUCOSE 284, A1C 9.5, Hgb 11.5, WBC 10.6. He has no history of renal disease, recently been told by PCP that his renal function is down and he has increased his oral fluid intake. Denies recent or recurrent UTI or URI. No changes in urine output, dysuria, hematuria or frothy urine. He had an US done in 2010 showing bilateral mild cortical thinning. Diabetes not well controlled given A1C 9.5. BP historically elevated based on chart review. He has been on DOXYCYCLINE for osteo. He received a total 11,000 cc fluids, has good urine ouput, overall +4L fluid balance. Vitals currently showing BP 141/84, otherwise WNL. Labs currently significant for Hgb 11.5, PLT 253, chloride 112, CR 2.9, BUN 28, EGFR 22, GLUCOSE 141. He had completed PICC line for IV ANTIBIOTICS. Lower extremity duplex showed significant bilateral peripheral obstruction. Foot x-ray showed chronic osteomyelitis of 2nd and 3rd metatarsal of right foot. Nephrology team was consulted for management of STEFFANIE on CKD. cc:: cc: Thong Solorio DO Exam Vital Signs Temp Pulse Resp BP Pulse Ox O2 Del Method O2 Flow Rate 97.6 F 78 18 141/84 H 100 Room Air 2 06/26/24 12:20 06/26/24 12:20 06/26/24 12:20 06/26/24 12:20 06/26/24 12:20 06/26/24 12:20 06/25/24 16:00 Narrative Exam GENERAL: Normal appearing male, NAD HEENT: NC/AT. Moist mucosa. PERRLA/EOMI. CARDIO: RRR, III/ systolic ejection murmur heard at left sternal border, no JVD. PULM: No coughing or visible SOB. Lungs CTA B/L GI: Abdomen soft, NT/ND, +BS. SKIN/MSK/EXT: Right foot in kerliex roll, no bleeding, Left BKA noted. NEURO: Oriented x3, Moves extremities x4, no focal neurologic deficits noted. Results Labs 06/27/24 07:24 06/27/24 05:05 Quality Measures Quality Measures none Advance care planning discussed with:: patient Medications Home Medications and Allergies Home Medications ?Medication ?Instructions ?Recorded ?Confirmed ?Type atorvastatin 20 mg tablet 20 mg PO QDAY 08/14/2006/26 History glipizide 5 mg tablet, extended 5 mg PO QDAY 08/14/20 08/14/20 History release 24 hr lisinopril 2.5 mg tablet 2.5 mg PO QDAY 08/14/2006/12 History metformin 1,000 mg tablet 1,000 mg PO BID 08/14/2006/01 History empagliflozin 25 mg tablet 25 mg PO QAM 06/26/2406/26 History (Jardiance) semaglutide 7 mg tablet (Rybelsus) 7 mg PO QDAY 06/26/24 History Allergies Allergy/AdvReac Type Severity Reaction Status Date / Time Penicillins Allergy Verified 06/22/24 15:47 Visit Medications Acetaminophen (Acetaminophen 325 Mg Tablet) 650 mg PO Q6H PRN PRN Reason: Fever >100.4 or pain 1-3 Stop: 07/22/24 19:20 Amlodipine Besylate (Amlodipine Besylate 5 Mg Tablet) 5 mg PO QDAY [facility] Stop: 07/24/24 10:59 Last Admin: 06/26/24 08:48 Dose: 5 mg Dextrose (Dextrose 50%-Water Inj 50 Ml Syringe) 25 ml IV Q15MIN PRN PRN Reason: BG 50-70 responsive npo pt Stop: 07/22/24 19:23 Dextrose (Dextrose 50%-Water Inj 50 Ml Syringe) 50 ml IV Q15MIN PRN PRN Reason: BG <50 OR BG <70 & pt unresponsive Stop: 07/22/24 19:23 Doxycycline Hyclate (Doxycycline 100 Mg Tablet) 100 mg PO BID [facility] Stop: 07/02/24 20:59 Last Admin: 06/26/24 08:49 Dose: 100 mg Glucagon (Glucagon Inj 1 Mg Vial) 1 mg IM Q15MIN PRN PRN Reason: BG <70, and no IV access Heparin Sodium (Porcine) (Heparin Sod Inj 5000 Unit/Ml Vial) 5,000 unit SC Q8HR [facility] Stop: 07/06/24 21:59 Last Admin: 06/26/24 13:08 Dose: 5,000 unit Hydralazine HCl (Hydralazine Inj 20 Mg/Ml Vial) 10 mg IV Q6H PRN PRN Reason: SBP >180 Stop: 07/22/24 20:13 Last Admin: 06/26/24 10:56 Dose: 10 mg Hydromorphone HCl (Hydromorphone Inj 2 Mg/Ml Vial) 1 mg IVP Q4HR PRN PRN Reason: Pain 7-10 Stop: 06/27/24 20:22 Sodium Chloride (Ns) 1,000 mls @ 75 mls/hr IV .[id number] [facility] Stop: 07/22/24 19:29 Last Admin: 06/25/24 21:26 Dose: 75 mls/hr Ceftriaxone Sodium 2 gm/ (Sodium Chloride) 50 mls @ 100 mls/hr IV QDAY [facility] Stop: 07/02/24 09:27 Last Admin: 06/26/24 08:50 Dose: 100 mls/hr Insulin Glargine (Insulin Glargine (Lantus) 5 Unit/0.05 Ml (Per 5 Units)) 10 unit SC QDAY [facility] Stop: 07/23/24 08:59 Last Admin: 06/26/24 09:17 Dose: Not Given Insulin Human Lispro (Insulin Lispro (Admelog) 1 Unit/0.01 Ml Unit) 0 unit SC AC [facility]; Protocol Stop: 07/23/24 07:29 Last Admin: 06/26/24 12:40 Dose: Not Given Oxycodone/Acetaminophen (Oxycodone/Apap 5/325 Tablet) 1 tab PO Q6HR PRN PRN Reason: Pain 4-6 Stop: 06/27/24 19:54 Last Admin: 06/26/24 09:57 Dose: 1 tab Sennosides (Senna Tablet) 1 tab PO QDAY PRN; Protocol PRN Reason: CONSTIPATION Stop: 07/22/24 23:06 Last Admin: 06/25/24 09:14 Dose: 1 tab Discontinued Medications Acetaminophen (Acetaminophen 325 Mg Tablet) 650 mg PO Q6H PRN PRN Reason: Fever >101.5 Stop: 07/22/24 19:20 Acetaminophen (Acetaminophen 325 Mg Tablet) 650 mg PO Q6H PRN PRN Reason: Fever >100.4 or pain Stop: 07/22/24 19:20 Heparin Sodium (Beef Lung) (Heparin Sod Lock Syr 100 Unit/Ml) 500 unit [place] X1 ONE Stop: 06/26/24 11:32 Last Admin: 06/26/24 11:33 Dose: 500 unit Vancomycin/Sodium Chloride (Vancomycin/Ns 1 Gm Ivpb) 200 mls @ 120 mls/hr IV X1 ONE Stop: 06/22/24 20:55 Last Infusion: 06/22/24 21:24 Dose: Infused Cefazolin Sodium (Ancef 2gm Ivpb) 2 gm in 100 mls @ 200 mls/hr IV X1 ONE Stop: 06/22/24 19:45 Last Admin: 06/22/24 21:22 Dose: Not Given Piperacillin/Tazobactam/Dextrose (Zosyn) 3.375 gm in 50 mls @ 12.5 mls/hr IV Q12HR [facility] Stop: 06/30/24 08:59 Last Admin: 06/25/24 09:10 Dose: 12.5 mls/hr Piperacillin/Tazobactam/Dextrose (Zosyn) 3.375 gm in 50 mls @ 100 mls/hr IV X1 ONE Stop: 06/22/24 20:29 Last Infusion: 06/22/24 21:47 Dose: Infused Vancomycin/Sodium Chloride (Vancomycin/Ns 1 Gm Ivpb) 200 mls @ 120 mls/hr IV X1 ONE Stop: 06/23/24 11:39 Last Admin: 06/23/24 09:16 Dose: 120 mls/hr Vancomycin/Sodium Chloride (Vancomycin/Ns 500 Mg Ivpb) 100 mls @ 120 mls/hr IV QDAY@1000 [facility] Stop: 07/01/24 09:59 Last Admin: 06/24/24 10:09 Dose: 120 mls/hr Sodium Chloride (Ns) 1,000 mls @ 100 mls/hr IV .Q10H ONE Stop: 06/25/24 18:22 Last Admin: 06/25/24 10:38 Dose: 100 mls/hr Insulin Human Lispro (Insulin Lispro (Admelog) 1 Unit/0.01 Ml Unit) 0 unit SC AC [facility]; Protocol Stop: 07/23/24 07:29 Insulin Human Lispro (Insulin Lispro (Admelog) 1 Unit/0.01 Ml Unit) 0 unit SC AC [facility]; Protocol Stop: 07/23/24 07:29 Last Admin: 06/23/24 07:43 Dose: 4 unit Lidocaine HCl (Lidocaine Inj Pf 1% 30 Ml Vial) 2 ml EPID X1 ONE Stop: 06/26/24 11:32 Last Admin: 06/26/24 11:33 Dose: 2 ml Nicotine (Nicotine Patch 7 Mg/24 Hr Patch.Td24) 7 mg TOP X1 ONE Stop: 06/22/24 20:18 Last Admin: 06/22/24 21:15 Dose: 7 mg Oxycodone/Acetaminophen (Oxycodone/Apap 5/325 Tablet) 1 tab PO Q6HR PRN PRN Reason: Pain 4-10 Stop: 06/27/24 19:54 Pharmacy Consult (Vancomycin Pharmacy To Dose 1 Each Each) 1 each IV QDAY PRN PRN Reason: PROTOCOL Stop: 07/23/24 08:59 Assessment & Plan Plan This is a 74-year-old male PMHx of longstanding IDDM, HTN, HLD, tobacco dependency, left leg BKA, admitted for osteomyelitis of metatarsals of the right foot. STEFFANIE on CKD stage IV Presented with CR 3.3 (baseline 2.0) which improved to 2.9 with fluids. Longstanding IDDM, poorly controlled, A1c 9.1. Longstanding HTN, historically elevated BP. US in 2010 showed mild hilario cortical thinning, CR 1.9 then. UA showed 2+ protein, 1+ GLUCOSE, 1+ blood. Urine output good, total 11L in and 4.3L out. Euvolemic on exam, denies current or chronic urinary symptoms. Likely has STEFFANIE on progressive diabetic nephropathy. Overall improving. ? HTN and glycemic control ? Renally dose meds, avoid overdiuresis and NEPHROTOXINS ? Daily CMP ? Pending mACr, random mAlbumen, UCr, U uric acid, PTH, Vit-D, renal US ? Maint NS @ 60 cc/h Acute osteomyelitis, right fifth metatarsal Chronic osteomyelitis [id number] type 2 diabetes Hypertension Hyperlipidemia Normocytic anemia Tobacco dependence ? Managed by primary team. Thank you for the opportunity to participate in the patient's care. Case was discussed with attending, Dr. Alarcon. June Marley DO PGYI Attending Provider Attestation/Addendum Patient seen and examined with resident physician Dr. Watkins. Note reviewed, agree with findings and recommendations. Admitted with prerenal azotemia. Agree with gentle IV fluids. Thank you Shekhar for allowing me to participate in the care of Mr. Louis
[2024-06-26 13:50] LABS: Basophils % (Auto) 0 % (0-2.5); Eosinophils # (Auto) 0.2 Thou/mm3 (0.0-0.5); Eosinophils % (Auto) 2 % (0-10); Hemoglobin 10.5 g/dL (13.5-16.0); Immature Granulocytes % (Auto) 0 % (0-0); Immature Granulocytes Auto 0.04 Thou/mm3 (0.00-0.00); Lymphocytes # (Auto) 1.4 Thou/mm3 (1.0-4.8); Lymphocytes % (Auto) 14 % (10-50); Mean Corpuscular Hemoglobin 31.4 pg (25.0-35.0); Mean Corpuscular Volume 90 fL (80-100); Monocytes # (Auto) 0.5 Thou/mm3 (0.0-0.8); Monocytes % (Auto) 5 % (0-12); Neutrophils # (Auto) 7.7 Thou/mm3 (1.8-7.7); Neutrophils % (Auto) 79 % (37-80); Nucleated Red Blood Cell % 0 /100 WBC (0); Platelet Count 278 Thou/mm3 (140-440); RDW Standard Deviation 38.5 fL (35.1-43.9); Red Blood Count 3.34 Miln/mm3 (4.50-5.90); White Blood Count 9.8 Thou/mm3 (3.8-10.6)
[2024-06-26 14:11] LABS: Alanine Aminotransferase 11 U/L (10-49); Albumin, Serum 3.6 gm/dL (3.4-4.8); Albumin/Globulin Ratio 1.2 (1.2-2.2); Alkaline Phosphatase 63 U/L (46-116); Anion Gap 11 (7-16); Aspartate Amino Transferase 14 U/L (0-34); BUN/Creatinine Ratio 12 Ratio (12-20); Bilirubin,Total 0.2 mg/dL (0.3-1.2); Blood Urea Nitrogen 32 mg/dL (9-23); Calcium 8.6 mg/dL (8.3-10.6); Calcium (Corrected) 8.9 mg/dL (8.5-10.1); Carbon Dioxide 19.8 mMol/L (20.0-31.0); Chloride 113 mMol/L (98-107); Creatinine (Component) 2.7 mg/dL (0.6-1.3); Estimated Creatinine Clearance 20.9 mL/min (>60); Globulin 2.9 gm/dL (2.3-3.5); Glucose 114 mg/dL (74-106); Osmolality,Calculated 294 (275-295); Potassium 4.2 mMol/L (3.4-5.1); Sodium 144 mMol/L (136-145); Total Protein 6.5 gm/dL (5.7-8.2); eGFR 24 See Note
--- NOTE | 2024-06-26 14:15 | XR_ITS ---
Examination: Ultrasound-guided needle placement right brachial vein. Dual-lumen central line placement (PICC line). Fluoroscopy AP chest, portable, single view Exam date and time:June 26, 2024 1050 hours INDICATIONS: Need for long-term intravenous antibiotic therapy for osteomyelitis A timeout was completed verifying correct patient, procedure, site, positioning Informed consent provided Technique: The patient's site was prepped and draped in sterile fashion. Maximum Sterile Barrier Technique used including cap, mask, sterile gown, sterile gloves, and sterile full body drape. If ultrasound technique used: sterile gel and sterile probe covers. Hand Hygiene performed using proper scrub, soap and water, or alcohol-based hand rub. Site right portable apparatus utilized to confirm patency of the right brachial vein Utilizing ultrasonographic guidance successful 21-gauge needle puncture into the right brachial vein Ultrasound images recorded and stored. 5 cc 1% lidocaine administered for local anesthetic. Successful micropuncture with a 21-gauge needle is performed. 0.18 wire guide is then introduced into the SVC under fluoroscopic guidance. Dual-lumen catheter dilator is then introduced, followed by the catheter in the SVC and proper position under fluoroscopic guidance. Successful aspiration of blood and flushing with heparinized saline is then performed in the 2 venous limbs. The catheter sutured in place. Findings: Under fluoroscopy, the tip of the catheter is in good position in the vena cava. Portable chest x-ray, post line placement is ordered. Estimated blood loss 3 cc The patient tolerated the procedure well and was in stable and satisfactory condition at completion of the procedure Impression: Successful ultrasound-guided needle placement right brachial vein Successful placement of dual lumen central line, percutaneous Fluoroscopy 0.1 minute radiation dose 0.69 milligray 1 spot fluoroscopic chest film. AP chest completion procedure demonstrates satisfactory position central line. May use central line.
[2024-06-26 14:29] LABS: Parathyroid Hormone Intact 49.7 pg/ml (18.5-88.0)
[2024-06-26] MEDS: INSULIN LISPRO (AdmeLOG) 1 UNIT/0.01 ML UNIT SC (17:04)
--- NOTE | 2024-06-26 17:30 | PC.NURSE ---
Dr. Torres made aware pt has two orders for NS IV fluids. Per md he will review chart. no new orders given.
[2024-06-26] MEDS: SODIUM CHLORIDE 0.9% 1000 ML 1,000 ML 75 ML IV (18:15)
[2024-06-26] MEDS: SODIUM CHLORIDE 0.9% 1000 ML 1,000 ML 60 ML IV (19:51)
[2024-06-27] VITALS: BP 117/57; PULSE 74; RESP 18; TEMP 36.8; O2SAT 99
[2024-06-27 03:08] LABS: Creatinine,Random Urine 58 mg/dL (30-125); Protein Total, Random Urine 218 mg/dL (1-14)
[2024-06-27 03:12] LABS: Creatinine MALB Rnd Ur 57 mg/dL (30-125); Microalbumin Creat Ratio 667 mg/gCrea (<30); Microalbumin, Random Urine > 380 mg/L (0-300); Potassium,Urine Random 28 mMol/L (12-62)
[2024-06-27 04:00] VITALS: BP 146/59; PULSE 75; RESP 18; TEMP 36.5; O2SAT 99
[2024-06-27] MEDS: HEPARIN SOD INJ 5000 UNIT/ML VIAL SC ×2 (05:00→14:12)
[2024-06-27 06:41] LABS: Alanine Aminotransferase 11 U/L (10-49); Albumin, Serum 3.4 gm/dL (3.4-4.8); Albumin/Globulin Ratio 1.3 (1.2-2.2); Alkaline Phosphatase 60 U/L (46-116); Anion Gap 8 (7-16); Aspartate Amino Transferase 14 U/L (0-34); BUN/Creatinine Ratio 13 Ratio (12-20); Bilirubin,Total 0.3 mg/dL (0.3-1.2); Blood Urea Nitrogen 30 mg/dL (9-23); Calcium 8.4 mg/dL (8.3-10.6); Calcium (Corrected) 8.9 mg/dL (8.5-10.1); Carbon Dioxide 21.6 mMol/L (20.0-31.0); Chloride 113 mMol/L (98-107); Creatinine (Component) 2.3 mg/dL (0.6-1.3); Estimated Creatinine Clearance 24.6 mL/min (>60); Globulin 2.7 gm/dL (2.3-3.5); Glucose 102 mg/dL (74-106); Osmolality,Calculated 291 (275-295); Sodium 143 mMol/L (136-145); Total Protein 6.1 gm/dL (5.7-8.2); eGFR 29 See Note
[2024-06-27 07:36] VITALS: BP 146/65; PULSE 66; RESP 16; TEMP 36.8; O2SAT 98
[2024-06-27 08:33] LABS: Basophils % (Auto) 0 % (0-2.5); Eosinophils # (Auto) 0.1 Thou/mm3 (0.0-0.5); Eosinophils % (Auto) 1 % (0-10); Hematocrit 28.6 % (41.0-53.0); Immature Granulocytes % (Auto) 0 % (0-0); Immature Granulocytes Auto 0.02 Thou/mm3 (0.00-0.00); Lymphocytes # (Auto) 1.5 Thou/mm3 (1.0-4.8); Lymphocytes % (Auto) 19 % (10-50); Mean Corpuscular Hemoglobin 31.3 pg (25.0-35.0); Mean Corpuscular Volume 90 fL (80-100); Monocytes # (Auto) 0.4 Thou/mm3 (0.0-0.8); Monocytes % (Auto) 5 % (0-12); Neutrophils # (Auto) 5.7 Thou/mm3 (1.8-7.7); Neutrophils % (Auto) 73 % (37-80); Nucleated Red Blood Cell % 0 /100 WBC (0); Platelet Count 259 Thou/mm3 (140-440); RDW Standard Deviation 38.7 fL (35.1-43.9); Red Blood Count 3.19 Miln/mm3 (4.50-5.90); White Blood Count 7.8 Thou/mm3 (3.8-10.6)
[2024-06-27] MEDS: SODIUM CHLORIDE 0.9% 1000 ML 1,000 ML 60 ML IV (09:16)
[2024-06-27] MEDS: cefTRIAXone 2 GM in SODIUM CHLORIDE 0.9% (Popper) 50 ML IV (09:16)
[2024-06-27] MEDS: INSULIN GLARGINE (Lantus) 5 UNIT/0.05 ML (PER 5 UNITS) 10 UNIT SC (09:17)
[2024-06-27] MEDS: DOXYCYCLINE 100 MG TABLET PO (09:18)
[2024-06-27 09:20] VITALS: BP 146/65; PULSE 66
[2024-06-27] MEDS: amLODIPine BESYLATE 2.5 MG TABLET 10 MG PO (09:20)
[2024-06-27 11:16] VITALS: BP 141/65; PULSE 70; RESP 16; TEMP 36.6; O2SAT 98
--- NOTE | 2024-06-27 12:13 | PC.SS ---
Pt #1 choice for SNF is [facility], ss reached out to Marge they can accept pt today. Pt is pending nephro clearance.
--- NOTE | 2024-06-27 13:00 | PD.RESPRO ---
Documentation for date of: 06/27/24 Subjective Subjective Interval history: This is a 74-year-old male PMHx of longstanding IDDM, HTN, HLD, tobacco dependency, left leg BKA, admitted for osteomyelitis of metatarsals of the right foot. On admission, CR 3.3 (baseline around 2), BUN 35, GFR 19, GLUCOSE 284, A1C 9.5, Hgb 11.5, WBC 10.6. He has no history of renal disease, recently been told by PCP that his renal function is down and he has increased his oral fluid intake. Denies recent or recurrent UTI or URI. No changes in urine output, dysuria, hematuria or frothy urine. He had an US done in 2010 showing bilateral mild cortical thinning. Diabetes not well controlled given A1C 9.5. BP historically elevated based on chart review. He has been on DOXYCYCLINE for osteo. He received a total 11,000 cc fluids, has good urine ouput, overall +4L fluid balance. Vitals currently showing BP 141/84, otherwise WNL. Labs currently significant for Hgb 11.5, PLT 253, chloride 112, CR 2.9, BUN 28, EGFR 22, GLUCOSE 141. He had completed PICC line for IV ANTIBIOTICS. Lower extremity duplex showed significant bilateral peripheral obstruction. Foot x-ray showed chronic osteomyelitis of 2nd and 3rd metatarsal of right foot. Nephrology team was consulted for management of STEFFANIE on CKD. 06/27/2024 patient currently seen in medical floor. Resting comfortably. Creatinine slowly improving. Exam Vital Signs Temp Pulse Resp BP Pulse Ox O2 Del Method O2 Flow Rate 98 F 70 16 141/65 H 98 Room Air 2 06/27/24 11:16 06/27/24 11:16 06/27/24 11:16 06/27/24 11:16 06/27/24 11:16 06/27/24 11:16 06/25/24 16:00 Narrative Exam GENERAL: Normal appearing male, NAD HEENT: NC/AT. Moist mucosa. PERRLA/EOMI. CARDIO: RRR, III/ systolic ejection murmur heard at left sternal border, no JVD. PULM: No coughing or visible SOB. Lungs CTA B/L GI: Abdomen soft, NT/ND, +BS. SKIN/MSK/EXT: Right foot in kerliex roll, no bleeding, Left BKA noted. NEURO: Oriented x3, Moves extremities x4, no focal neurologic deficits noted. Objective Labs 06/27/24 07:24 06/27/24 05:05 Labs: Laboratory Results - last 24 hr 06/26/24 06/27/24 06/27/24 08:35 02:00 05:05 WBC 9.8 RBC 3.34 L Hgb 10.5 L Hct 30.0 L MCV 90 MCH 31.4 MCHC 35.0 RDW Std Deviation 38.5 Plt Count 278 D Neut % (Auto) 79 Lymph % (Auto) 14 [place] % (Auto) 5 Eos % (Auto) 2 Baso % (Auto) 0 Neut # (Auto) 7.7 Lymph # (Auto) 1.4 [place] # (Auto) 0.5 Eos # (Auto) 0.2 Baso # (Auto) 0.0 Immature Gran # (Auto) 0.04 H Absolute Nucleated RBC 0.00 Immature Gran % 0 Nucleated RBC % 0 Sodium 144 143 Potassium 4.2 4.0 Chloride 113 H 113 H Carbon Dioxide 19.8 L 21.6 Anion Gap 11 8 BUN 32 H 30 H Creatinine 2.7 H 2.3 H Estim Creat Clear Calc 20.9 L 24.6 L eGFR 24 L 29 L BUN/Creatinine Ratio 12 13 Glucose 114 H 102 Calculated Osmolality 294 291 Calcium 8.6 8.4 Corrected Calcium 8.9 8.9 Total Bilirubin 0.2 L 0.3 AST 14 14 ALT 11 11 Alkaline Phosphatase 63 60 Total Protein 6.5 6.1 Albumin 3.6 3.4 Globulin 2.9 2.7 Albumin/Globulin Ratio 1.2 1.3 PTH Intact 49.7 Ur Random Creatinine 58 Ur Random Microalbumin > 380 H U Random Total Protein 218 H Ur Random Sodium 107.0 Ur Random Potassium 28 Ur Random Chloride 104.0 U Creat (Microalbumin) 57 Microalb/Creat Ratio 667 H 06/27/24 07:24 WBC 7.8 RBC 3.19 L Hgb 10.0 L Hct 28.6 L MCV 90 MCH 31.3 MCHC 35.0 RDW Std Deviation 38.7 Plt Count 259 Neut % (Auto) 73 Lymph % (Auto) 19 [place] % (Auto) 5 Eos % (Auto) 1 Baso % (Auto) 0 Neut # (Auto) 5.7 Lymph # (Auto) 1.5 [place] # (Auto) 0.4 Eos # (Auto) 0.1 Baso # (Auto) 0.0 Immature Gran # (Auto) 0.02 H Absolute Nucleated RBC 0.00 Immature Gran % 0 Nucleated RBC % 0 Sodium Potassium Chloride Carbon Dioxide Anion Gap BUN Creatinine Estim Creat Clear Calc eGFR BUN/Creatinine Ratio Glucose Calculated Osmolality Calcium Corrected Calcium Total Bilirubin AST ALT Alkaline Phosphatase Total Protein Albumin Globulin Albumin/Globulin Ratio PTH Intact Ur Random Creatinine Ur Random Microalbumin U Random Total Protein Ur Random Sodium Ur Random Potassium Ur Random Chloride U Creat (Microalbumin) Microalb/Creat Ratio Quality Measures Quality Measures none Advance care planning discussed with:: patient Assessment & Plan Assessment Current Active Medications: Generic Name Dose Route Start Last Admin Trade Name Freq PRN Reason Stop Dose Admin Acetaminophen 650 mg 06/22/24 20:24 Acetaminophen 325 Mg Tablet PO 07/22/24 19:20 Q6H PRN Fever >100.4 or pain 1-3 Amlodipine Besylate 10 mg 06/28/24 09:00 Amlodipine Besylate 5 Mg Tablet PO 07/27/24 08:59 QDAY [facility] Dextrose 25 ml 06/22/24 19:24 Dextrose 50%-Water Inj 50 Ml Syringe IV 07/22/24 19:23 Q15MIN PRN BG 50-70 responsive npo pt Dextrose 50 ml 06/22/24 19:24 Dextrose 50%-Water Inj 50 Ml Syringe IV 07/22/24 19:23 Q15MIN PRN BG <50 OR BG <70 & pt unresponsive Doxycycline Hyclate 100 mg 06/25/24 21:00 06/27/24 09:18 Doxycycline 100 Mg Tablet PO 07/02/24 20:59 100 mg BID [facility]ACINDA Administration Glucagon 1 mg 06/22/24 19:24 Glucagon Inj 1 Mg Vial IM Q15MIN PRN BG <70, and no IV access Heparin Sodium (Porcine) 5,000 unit 06/22/24 22:00 06/27/24 05:00 Heparin Sod Inj 5000 Unit/Ml Vial SC 07/06/24 21:59 5,000 unit Q8HR [facility] Administration Hydralazine HCl 10 mg 06/22/24 20:14 06/26/24 10:56 Hydralazine Inj 20 Mg/Ml Vial IV 07/22/24 20:13 10 mg Q6H PRN Administration SBP >180 Hydromorphone HCl 1 mg 06/22/24 20:23 Hydromorphone Inj 2 Mg/Ml Vial IVP 06/27/24 20:22 Q4HR PRN Pain 7-10 Sodium Chloride 1,000 mls @ 60 mls/hr 06/26/24 14:00 06/27/24 09:16 Ns IV 07/26/24 13:59 60 mls/hr .[id number] [facility]ACIN[facility] Administration Ceftriaxone Sodium/Dextrose 2 gm in 50 mls @ 100 mls/hr 06/28/24 09:00 Rocephin/D5w 2gm IV 07/02/24 09:27 QDAY [facility] Insulin Glargine 10 unit 06/23/24 09:00 06/27/24 09:17 Insulin Glargine (Lantus) 5 Unit/0.05 Ml (Per 5 Units) SC 07/23/24 08:59 10 unit QDAY [facility] Administration Insulin Human Lispro 0 unit 06/23/24 08:30 06/27/24 11:19 Insulin Lispro (Admelog) 1 Unit/0.01 Ml Unit SC 07/23/24 07:29 Not Given AC [facility] Protocol Sennosides 1 tab 06/22/24 23:07 06/25/24 09:14 Senna Tablet PO 07/22/24 23:06 1 tab QDAY PRN Administration CONSTIPATION Protocol Plan This is a 74-year-old male PMHx of longstanding IDDM, HTN, HLD, tobacco dependency, left leg BKA, admitted for osteomyelitis of metatarsals of the right foot. STEFFANIE on CKD stage IV Presented with CR 3.3 (baseline 2.0) which improved to 2.9 with fluids. Longstanding IDDM, poorly controlled, A1c 9.1. Longstanding HTN, historically elevated BP. US in 2010 showed mild hilario cortical thinning, CR 1.9 then. UA showed 2+ protein, 1+ GLUCOSE, 1+ blood. Urine output good, total 11L in and 4.3L out. Euvolemic on exam, denies current or chronic urinary symptoms. Likely has STEFFANIE on progressive diabetic nephropathy. Overall improving. PTH normal, urine microalbumin greater than 380, urine protein to 18, microalbumin/creatinine ratio 667. Findings suggestive of diabetic nephropathy. Renal ultrasound showed bilateral parenchymal scarring and renal cortical thinning, and prostamegaly, 55 cc, no prostate nodules. ? HTN and glycemic control ? Renally dose meds, avoid overdiuresis and NEPHROTOXINS ? Daily CMP ? Pending vitamin-D ? Continue maint NS @ 60 cc/h Acute osteomyelitis, right fifth metatarsal Chronic osteomyelitis [id number] type 2 diabetes Hypertension Hyperlipidemia Normocytic anemia Tobacco dependence ? Managed by primary team. Thank you for the opportunity to participate in the patient's care. Case was discussed with attending, Dr. Alarcon. June Marley DO PGYI Attending Provider Attestation/Addendum Patient seen and examined with resident physician Dr. Watkins. Note reviewed, agree with findings and recommendations. Admitted with prerenal azotemia. Agree with gentle IV fluids. Creatinine slowly improving. Patient seems to have underlying CKD-suggested to come back in follow-up with me in 1 week in my office
--- NOTE | 2024-06-27 13:14 | PC.SS ---
Addendum entered by Beata Guzman 06/27/24 13:48: Trip was rejected. SS contacted [facility] Trip #[id number] pending ETA Original Note: SS utilized [employer] to set up transport for pt dc to [facility]. Trip #[id number]. Pending ETA.
--- NOTE | 2024-06-27 13:15 | PC.SS ---
SS met with pt at bs with Jess CARCAMO to translate to pt DC plan to [facility]. Pt agreed.
[2024-06-27 16:00] VITALS: BP 116/48; PULSE 70; RESP 16; TEMP 36.8; O2SAT 100
--- NOTE | 2024-06-27 16:21 | PD.RESDS ---
Planned Discharge Date 06/27/24 DS: Providers Provider Date of admission: 06/22/24 19:21 Primary care physician: Sorin Lyn MD Admitting Provider: Chad Zaragoza MD Attending Provider on Admission: Thong Solorio DO Consults: 06/22/24 19:32 Consult to General Surgery Routine Comment: Consulting Provider: Ted Alfonso 06/22/24 19:53 Referral Wound Care Routine Comment: 06/22/24 20:12 Referral Registered Dietitian Routine Comment: 06/24/24 10:49 Consult to Infectious Diseases Routine Comment: Consulting Provider: Chas Broussard 06/25/24 16:22 Referral OP Wound Healing Dept Routine Comment: Right lateral foot DM ulcer, + osteomyelitis, Instructions: Right lateral foot DM ulcer, + osteomyelitis, left Bka 06/26/24 11:49 Consult to Nephrology Routine Comment: Consulting Provider: Sunil Alarcon Attending Provider on DC: Thong Solorio DO Discharging Provider: Thong Solorio DO DS: Diagnosis Problem List Completed Was Problem List Reviewed/Reconciled?: Yes Hospital Course Hospital Course Hospital course: Reason for hospitalization: osteomyelitis 5th metatarsal Heriberto Lawrence is 74 yr male with PMH of HTN, [id number] type 2 diabetes, 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 Patient stated he had this wound on right foot for several years which acutely worsened. Upon presentation, wound was open with discharge and patient was in severe pain. Patient was not septic, A1c 9.5. Foot x-ray confirmed chronic osteomyelitis of the 2nd and 3rd metatarsals and early acute osteomyelitis of the distal fifth metatarsal with soft tissue infection at the fifth metatarsal phalangeal joint. He was admitted for management. General surgery Dr. Alfonso and ID Dr. Broussard were consulted. Their were no indications for surgical intervention or amputation after evaluation by surgeon. Recommendations were to follow up with wound clinic and discharge. ID team started patient on ceftriaxone 2g daily and doxycyline 100mg BID. PICC line was placed on 06/26/24 for IV antibiotics for 6 weeks. During hospitalization, patient developed STEFFANIE. Nephrology Dr. Alarcon was consulted. STEFFANIE resolved after adequate fluids. He was started on amlodipine 10mg daily for tighter BP control and lisinopril 2.5mg daily in setting of CKD. Patient is now in stable condition and ready for discharge. Recommendations were given as below. Discharge Recommendations: Patient is to continue IV ceftriaxone 2 g daily and doxycycline 100 mg twice daily until 08/06/2024 for treatment of diabetic foot infection. Patient should follow-up with nephrology Dr. Alarcon in 2 weeks for monitoring of kidney function. Continue taking lisinopril 2.5 mg daily for management of kidney disease and high blood pressure. Follow-up with PCP in 1-2 weeks for any medication dose adjustments. Please get a weekly CBC, renal panel, and sed rate on the treatment. Hospital Diagnoses: #Acute osteomyelitis, right fifth metatarsal #Chronic osteomyelitis #PICC line #STEFFANIE on CKD stage IV #[id number]-[id number] type 2 diabetes, poorly controlled #Hypertension #Hyperlipidemia #Normocytic anemia #Tobacco dependence The patient's management plan was discussed with my attending physician Dr. Solorio. Tina Silva MD, PGY-1 Time spent discussing smoking cessation with patient: more than 10 minutes Time Spent with Patient Time attestation: Total time spent providing and/or coordinating discharge services: Time spent: Greater than 30 minutes Exam Vital Signs Temp Pulse Resp BP Pulse Ox O2 Del Method O2 Flow Rate 98 F 70 16 141/65 H 98 Room Air 2 06/27/24 11:16 06/27/24 11:16 06/27/24 11:16 06/27/24 11:16 06/27/24 11:16 06/27/24 11:16 06/25/24 16:00 Narrative Exam GENERAL: Awake, answering questions appropriately in [place]an, appears stated age. HEENT: NC/AT. Moist mucosa. PERRLA/EOMI. CARDIO: Heart RRR, no JVD. PULM: No coughing or visible SOB. Lungs CTA B/L GI: Abdomen soft, NT/ND, +BS. SKIN/MSK/EXT: Right foot in kerliex roll, no bleeding, Left BKA with prosthetic. NEURO: Oriented x3, Moves extremities x4, no focal neurologic deficits noted. Discharge Plan Plan Patient Disposition: Xfer Skilled Nsg Fac (SNF) Disposition Comment: Stable Patient condition on transfer: Stable Prescriptions/Referrals Prescriptions/Med Rec: New doxycycline hyclate 100 mg capsule 100 mg PO BID 40 Days Qty: 80 0RF ceftriaxone 2 gram recon soln 2 g IV DAILY 40 Days Qty: 25 0RF No Action atorvastatin 20 mg tablet 20 mg PO QDAY Patient Comments: TAKE 1 TABLET BY MOUTH ONCE DAILY glipizide 5 mg tablet extended release 24hr 5 mg PO QDAY Patient Comments: TOME MANUELITO TABLETA TODOS LOS D CON ALIMENTO metformin 1,000 mg tablet 1,000 mg PO BID Patient Comments: TAKE 1 TABLET BY MOUTH TWICE DAILY WITH MEALS lisinopril 2.5 mg tablet 2.5 mg PO QDAY Patient Comments: TAKE 1 TABLET BY MOUTH EVERY DAY Jardiance 25 mg tablet 25 mg PO QAM Rybelsus 7 mg tablet 7 mg PO QDAY Referrals: Erlinda Gutierrez RN [Emergency Nurse] - Sorin Lyn MD [Primary Care Provider] - Sunil Alarcon MD [Physician] - Patient/Caregiver Discharge Instructions Other Discharge Activity Instructions:: Patient is to continue IV ceftriaxone 2 g daily and doxycycline 100 mg twice daily until 08/06/2024 for treatment of diabetic foot infection. Patient should follow-up with nephrology Dr. Alarcon in 2 weeks for monitoring of kidney function. Continue taking lisinopril 2.5 mg daily for management of kidney disease and high blood pressure. Follow-up with PCP in 1-2 weeks for any medication dose adjustments. Please get a weekly CBC, renal panel, and sed rate on the treatment. Education Materials: Diabetes and Kidney Disease, Osteomyelitis Dc Print Language: Citizen Of [place] Stand Alone Forms: Arlene Award Info., Patient Portal Info Letter Discharge Order Discharge Orders: Discharge (Routine); Ordered 06/27/24 Ordered By: Tina Silva Quality Discharge Quality Measures VTE prophylaxis Attestestation Attestation I have discussed and was present for the essential components of the discharge history, physical examination, diagnosis, and discharge treatment plan with the resident. I agree with the patient's discharge care as documented by the resident and amended herein by me. Shekhar Solorio DO. The patient understood all discharge instructions, all questions were answered satisfactorily. The patient was instructed to return to the Emergency Department is symptoms worsened or persisted. Although this document has been carefully reviewed, there may still be some phonetic and other typographical errors. These errors are purely grammatical due to imperfections in the software program and should not be construed in any way to compromise the substance of the patient's medical care during this visit.
[2024-06-27] MEDS: INSULIN LISPRO (AdmeLOG) 1 UNIT/0.01 ML UNIT SC (16:48)
== END 2024-06-27 18:07 | disposition skilled nursing facility (03) | DRG 638 ==
LOC: SERX 16:33 → SERHOLD 19:36 → S3SX 22:50
PROVIDERS: Internal Medicine; Nurse Practitioner Primary Care; Student in an Organized Health Care Education/Training Program; Admitting Provider Internal Medicine; Emergency Provider Emergency Medicine; PCP Pediatrics; Visit Provider Student in an Organized Health Care Education/Training Program
DX: E11.69 Type 2 diabetes mellitus with other specified complication (principal); M86.171 Other acute osteomyelitis, right ankle and foot; M86.671 Other chronic osteomyelitis, right ankle and foot; E11.65 Type 2 diabetes mellitus with hyperglycemia; N18.4 Chronic kidney disease, stage 4 (severe); N17.9 Acute kidney failure, unspecified; I12.9 Hypertensive chronic kidney disease with stage 1 through stage 4 chronic kidney disease, or unspecified chronic kidney disease; D63.1 Anemia in chronic kidney disease; E11.22 Type 2 diabetes mellitus with diabetic chronic kidney disease; F17.210 Nicotine dependence, cigarettes, uncomplicated; Z89.512 Acquired absence of left leg below knee; E78.5 Hyperlipidemia, unspecified; E11.628 Type 2 diabetes mellitus with other skin complications; L08.9 Local infection of the skin and subcutaneous tissue, unspecified; L85.3 Xerosis cutis; Z79.4 Long term (current) use of insulin; Z66 Do not resuscitate; Z63.4 Disappearance and death of family member; Z79.899 Other long term (current) drug therapy; Z88.0 Allergy status to penicillin
CPT/HCPCS: 36415; 73630; 76770; 80048; 80053; 80202; 82043; 82436; 82570; 82652; 82728; 83036; 83540; 83550; 83605; 83735; 83970; 84100; 84133; 84145; 84156; 84300; 84560; 85025; 85046; 85610; 85652; 85730; 86140; 87040; 87081; 93925; 96365; 96372; 99285; C1751; C1894; J0360; J0696; J1642; J1643; J1815; J2543; J3370; J3490; J7030; J7050; A9270

== ENCOUNTER → 2024-07-02 | Outpatient (CLI) | payer MEDICARE, MEDICAID, SELFPAY | END | disposition home or self-care (01) | PROVIDERS: Visit Provider Surgery | DX: S91.301A Unspecified open wound, right foot, initial encounter (principal); X58.XXXA Exposure to other specified factors, initial encounter; E11.40 Type 2 diabetes mellitus with diabetic neuropathy, unspecified; I73.9 Peripheral vascular disease, unspecified; M19.91 Primary osteoarthritis, unspecified site; I10 Essential (primary) hypertension; Z79.84 Long term (current) use of oral hypoglycemic drugs | CPT/HCPCS: 11043; 99213; A9270; G0463 ==

== ENCOUNTER → 2024-07-10 | Outpatient (BNVA) | payer MEDICARE, MEDICAID, SELFPAY | END | disposition home or self-care (01) | PROVIDERS: PCP Nurse Practitioner Primary Care; Referring Provider Nurse Practitioner Primary Care; Visit Provider Nurse Practitioner Primary Care | DX: Z76.89 Persons encountering health services in other specified circumstances (principal); M86.671 Other chronic osteomyelitis, right ankle and foot; E11.621 Type 2 diabetes mellitus with foot ulcer; L97.509 Non-pressure chronic ulcer of other part of unspecified foot with unspecified severity; E11.22 Type 2 diabetes mellitus with diabetic chronic kidney disease; I12.9 Hypertensive chronic kidney disease with stage 1 through stage 4 chronic kidney disease, or unspecified chronic kidney disease; N18.4 Chronic kidney disease, stage 4 (severe); I15.0 Renovascular hypertension; E78.5 Hyperlipidemia, unspecified; E11.69 Type 2 diabetes mellitus with other specified complication | CPT/HCPCS: 99214 ==

== ENCOUNTER → 2024-07-12 | Outpatient (CLI) | payer MEDICARE, MEDICAID, SELFPAY ==
[2024-07-12 11:47] LABS: Basophils % (Auto) 1 % (0-2.5); Eosinophils # (Auto) 0.1 Thou/mm3 (0.0-0.5); Eosinophils % (Auto) 2 % (0-10); Hematocrit 32.9 % (41.0-53.0); Hemoglobin 11.2 g/dL (13.5-16.0); Immature Granulocytes % (Auto) 0 % (0-0); Immature Granulocytes Auto 0.01 Thou/mm3 (0.00-0.00); Lymphocytes # (Auto) 1.9 Thou/mm3 (1.0-4.8); Lymphocytes % (Auto) 31 % (10-50); Mean Corpuscular Hemoglobin 31.1 pg (25.0-35.0); Mean Corpuscular Volume 91 fL (80-100); Monocytes # (Auto) 0.2 Thou/mm3 (0.0-0.8); Monocytes % (Auto) 4 % (0-12); Neutrophils # (Auto) 3.7 Thou/mm3 (1.8-7.7); Neutrophils % (Auto) 62 % (37-80); Nucleated Red Blood Cell % 0 /100 WBC (0); Platelet Count 215 Thou/mm3 (140-440); RDW Standard Deviation 43.1 fL (35.1-43.9)
[2024-07-12 12:06] LABS: Alanine Aminotransferase 23 U/L (10-49); Albumin, Serum 3.6 gm/dL (3.4-4.8); Albumin/Globulin Ratio 1.4 (1.2-2.2); Alkaline Phosphatase 74 U/L (46-116); Anion Gap 13 (7-16); Aspartate Amino Transferase 23 U/L (0-34); BUN/Creatinine Ratio 10 Ratio (12-20); Bilirubin,Total 0.5 mg/dL (0.3-1.2); Blood Urea Nitrogen 27 mg/dL (9-23); Calcium 9.5 mg/dL (8.3-10.6); Calcium (Corrected) 9.8 mg/dL (8.5-10.1); Carbon Dioxide 24.1 mMol/L (20.0-31.0); Chloride 106 mMol/L (98-107); Creatinine (Component) 2.6 mg/dL (0.6-1.3); Globulin 2.5 gm/dL (2.3-3.5); Glucose 99 mg/dL (74-106); Osmolality,Calculated 290 (275-295); Sodium 143 mMol/L (136-145); Total Protein 6.1 gm/dL (5.7-8.2); eGFR 25 See Note
== END | disposition home or self-care (01) ==
LOC: SLDO 11:17
PROVIDERS: PCP Nurse Practitioner Family; Referring Provider Nurse Practitioner Family; Visit Provider Nurse Practitioner Family
DX: Z01.89 Encounter for other specified special examinations (principal); Z79.2 Long term (current) use of antibiotics
CPT/HCPCS: 36415; 80053; 85025

== ENCOUNTER → 2024-07-17 | Outpatient (BNVA) | payer MEDICARE, MEDICAID, SELFPAY | END | disposition home or self-care (01) | PROVIDERS: PCP Nurse Practitioner Primary Care; Referring Provider Nurse Practitioner Primary Care; Visit Provider Nurse Practitioner Primary Care | DX: Z45.1 Encounter for adjustment and management of infusion pump (principal); Z79.4 Long term (current) use of insulin | CPT/HCPCS: 99215 ==

== ENCOUNTER → 2024-07-18 | Outpatient (CLI) | payer MEDICARE, MEDICAID, SELFPAY ==
[2024-07-18 15:22] LABS: Basophils % (Auto) 1 % (0-2.5); Eosinophils # (Auto) 0.1 Thou/mm3 (0.0-0.5); Eosinophils % (Auto) 3 % (0-10); Hematocrit 29.4 % (41.0-53.0); Immature Granulocytes % (Auto) 0 % (0-0); Immature Granulocytes Auto 0.01 Thou/mm3 (0.00-0.00); Lymphocytes # (Auto) 1.3 Thou/mm3 (1.0-4.8); Lymphocytes % (Auto) 26 % (10-50); Mean Corpuscular Hemoglobin 31.7 pg (25.0-35.0); Mean Corpuscular Volume 93 fL (80-100); Monocytes # (Auto) 0.3 Thou/mm3 (0.0-0.8); Monocytes % (Auto) 6 % (0-12); Neutrophils # (Auto) 3.1 Thou/mm3 (1.8-7.7); Neutrophils % (Auto) 65 % (37-80); Nucleated Red Blood Cell % 0 /100 WBC (0); Platelet Count 163 Thou/mm3 (140-440); RDW Standard Deviation 46.5 fL (35.1-43.9); Red Blood Count 3.15 Miln/mm3 (4.50-5.90); White Blood Count 4.8 Thou/mm3 (3.8-10.6)
[2024-07-18 15:48] LABS: Alanine Aminotransferase 26 U/L (10-49); Albumin, Serum 3.7 gm/dL (3.4-4.8); Albumin/Globulin Ratio 1.5 (1.2-2.2); Alkaline Phosphatase 64 U/L (46-116); Anion Gap 8 (7-16); Aspartate Amino Transferase 23 U/L (0-34); BUN/Creatinine Ratio 11 Ratio (12-20); Bilirubin,Total 0.3 mg/dL (0.3-1.2); Blood Urea Nitrogen 37 mg/dL (9-23); Calcium 8.5 mg/dL (8.3-10.6); Calcium (Corrected) 8.7 mg/dL (8.5-10.1); Chloride 110 mMol/L (98-107); Creatinine (Component) 3.3 mg/dL (0.6-1.3); Globulin 2.4 gm/dL (2.3-3.5); Glucose 231 mg/dL (74-106); Osmolality,Calculated 298 (275-295); Potassium 4.4 mMol/L (3.4-5.1); Sodium 142 mMol/L (136-145); Total Protein 6.1 gm/dL (5.7-8.2); eGFR 19 See Note
== END | disposition home or self-care (01) ==
LOC: SLDO 14:01
PROVIDERS: Referring Provider Nurse Practitioner Family; Visit Provider Nurse Practitioner Family
DX: Z45.1 Encounter for adjustment and management of infusion pump (principal); Z79.2 Long term (current) use of antibiotics
CPT/HCPCS: 36415; 80053; 85025

== ENCOUNTER → 2024-07-24 | Outpatient (BNVA) | payer MEDICARE, MEDICAID, SELFPAY | END | disposition home or self-care (01) | PROVIDERS: PCP Nurse Practitioner Primary Care; Referring Provider Nurse Practitioner Primary Care; Visit Provider Nurse Practitioner Primary Care | DX: E11.22 Type 2 diabetes mellitus with diabetic chronic kidney disease (principal); N18.4 Chronic kidney disease, stage 4 (severe); Z79.4 Long term (current) use of insulin; D63.1 Anemia in chronic kidney disease | CPT/HCPCS: 99214 ==

== ENCOUNTER → 2024-07-25 | Outpatient (CLI) | payer MEDICARE, MEDICAID, SELFPAY | END | disposition home or self-care (01) | PROVIDERS: PCP Pediatrics; Referring Provider Pediatrics; Visit Provider Student in an Organized Health Care Education/Training Program | DX: S91.301D Unspecified open wound, right foot, subsequent encounter (principal); X58.XXXD Exposure to other specified factors, subsequent encounter; E11.40 Type 2 diabetes mellitus with diabetic neuropathy, unspecified; I73.9 Peripheral vascular disease, unspecified; I10 Essential (primary) hypertension; Z79.84 Long term (current) use of oral hypoglycemic drugs | CPT/HCPCS: 97597; A9270 ==

== ENCOUNTER → 2024-07-25 | Outpatient (CLI) | payer MEDICARE, MEDICAID, SELFPAY ==
[2024-07-25 16:47] LABS: Basophils % (Auto) 1 % (0-2.5); Eosinophils # (Auto) 0.1 Thou/mm3 (0.0-0.5); Eosinophils % (Auto) 2 % (0-10); Hematocrit 29.6 % (41.0-53.0); Hemoglobin 9.9 g/dL (13.5-16.0); Immature Granulocytes % (Auto) 0 % (0-0); Immature Granulocytes Auto 0.01 Thou/mm3 (0.00-0.00); Lymphocytes # (Auto) 1.1 Thou/mm3 (1.0-4.8); Lymphocytes % (Auto) 25 % (10-50); Mean Corpuscular HGB Conc 33.4 g/dl (31.0-37.0); Mean Corpuscular Hemoglobin 31.5 pg (25.0-35.0); Mean Corpuscular Volume 94 fL (80-100); Monocytes # (Auto) 0.2 Thou/mm3 (0.0-0.8); Monocytes % (Auto) 5 % (0-12); Neutrophils % (Auto) 66 % (37-80); Nucleated Red Blood Cell % 0 /100 WBC (0); Platelet Count 158 Thou/mm3 (140-440); RDW Standard Deviation 48.5 fL (35.1-43.9); Red Blood Count 3.14 Miln/mm3 (4.50-5.90); White Blood Count 4.5 Thou/mm3 (3.8-10.6)
[2024-07-25 17:00] LABS: Alanine Aminotransferase 39 U/L (10-49); Albumin, Serum 3.6 gm/dL (3.4-4.8); Albumin/Globulin Ratio 1.4 (1.2-2.2); Alkaline Phosphatase 69 U/L (46-116); Anion Gap 11 (7-16); Aspartate Amino Transferase 32 U/L (0-34); BUN/Creatinine Ratio 8 Ratio (12-20); Bilirubin,Total 0.2 mg/dL (0.3-1.2); Blood Urea Nitrogen 21 mg/dL (9-23); Calcium 8.4 mg/dL (8.3-10.6); Calcium (Corrected) 8.7 mg/dL (8.5-10.1); Carbon Dioxide 22.5 mMol/L (20.0-31.0); Chloride 111 mMol/L (98-107); Creatinine (Component) 2.6 mg/dL (0.6-1.3); Globulin 2.5 gm/dL (2.3-3.5); Glucose 66 mg/dL (74-106); Osmolality,Calculated 287 (275-295); Sodium 144 mMol/L (136-145); Total Protein 6.1 gm/dL (5.7-8.2); eGFR 25 See Note
== END | disposition home or self-care (01) ==
PROVIDERS: Referring Provider Nurse Practitioner Family; Visit Provider Nurse Practitioner Family
DX: Z01.89 Encounter for other specified special examinations (principal); Z79.2 Long term (current) use of antibiotics
CPT/HCPCS: 36415; 80053; 85025

== ENCOUNTER → 2024-08-01 | Outpatient (CLI) | payer MEDICARE, MEDICAID, SELFPAY | END | disposition home or self-care (01) | LOC: SWHD 09:35 | PROVIDERS: PCP Pediatrics; Referring Provider Pediatrics; Visit Provider Student in an Organized Health Care Education/Training Program | DX: S91.301D Unspecified open wound, right foot, subsequent encounter (principal); X58.XXXD Exposure to other specified factors, subsequent encounter; E11.40 Type 2 diabetes mellitus with diabetic neuropathy, unspecified; I73.9 Peripheral vascular disease, unspecified; M19.91 Primary osteoarthritis, unspecified site; I10 Essential (primary) hypertension; Z79.84 Long term (current) use of oral hypoglycemic drugs | CPT/HCPCS: 99213; G0463 ==

== ENCOUNTER → 2024-08-02 | Outpatient (BNVA) | payer MEDICARE, MEDICAID, SELFPAY | END | disposition home or self-care (01) | PROVIDERS: PCP Nurse Practitioner Primary Care; Referring Provider Nurse Practitioner Primary Care; Visit Provider Nurse Practitioner Primary Care | DX: E11.22 Type 2 diabetes mellitus with diabetic chronic kidney disease (principal); N18.4 Chronic kidney disease, stage 4 (severe) | CPT/HCPCS: 99212; G0463 ==

== ENCOUNTER → 2024-08-02 | Outpatient (CLI) | payer MEDICARE, MEDICAID, SELFPAY ==
[2024-08-02 16:34] LABS: Basophils % (Auto) 1 % (0-2.5); Eosinophils # (Auto) 0.2 Thou/mm3 (0.0-0.5); Eosinophils % (Auto) 3 % (0-10); Hematocrit 28.5 % (41.0-53.0); Hemoglobin 9.8 g/dL (13.5-16.0); Immature Granulocytes % (Auto) 0 % (0-0); Lymphocytes # (Auto) 1.6 Thou/mm3 (1.0-4.8); Lymphocytes % (Auto) 27 % (10-50); Mean Corpuscular HGB Conc 34.4 g/dl (31.0-37.0); Mean Corpuscular Hemoglobin 31.7 pg (25.0-35.0); Mean Corpuscular Volume 92 fL (80-100); Monocytes # (Auto) 0.3 Thou/mm3 (0.0-0.8); Monocytes % (Auto) 6 % (0-12); Neutrophils # (Auto) 3.7 Thou/mm3 (1.8-7.7); Neutrophils % (Auto) 64 % (37-80); Nucleated Red Blood Cell % 0 /100 WBC (0); Platelet Count 190 Thou/mm3 (140-440); RDW Standard Deviation 49.8 fL (35.1-43.9); Red Blood Count 3.09 Miln/mm3 (4.50-5.90); White Blood Count 5.8 Thou/mm3 (3.8-10.6)
[2024-08-02 16:55] LABS: Alanine Aminotransferase 51 U/L (10-49); Albumin, Serum 3.8 gm/dL (3.4-4.8); Albumin/Globulin Ratio 1.6 (1.2-2.2); Alkaline Phosphatase 79 U/L (46-116); Anion Gap 12 (7-16); Aspartate Amino Transferase 32 U/L (0-34); BUN/Creatinine Ratio 8 Ratio (12-20); Bilirubin,Total < 0.2 mg/dL (0.3-1.2); Blood Urea Nitrogen 22 mg/dL (9-23); Calcium 8.9 mg/dL (8.3-10.6); Calcium (Corrected) 9.1 mg/dL (8.5-10.1); Carbon Dioxide 22.3 mMol/L (20.0-31.0); Chloride 110 mMol/L (98-107); Creatinine (Component) 2.8 mg/dL (0.6-1.3); Globulin 2.4 gm/dL (2.3-3.5); Glucose 74 mg/dL (74-106); Osmolality,Calculated 289 (275-295); Sodium 144 mMol/L (136-145); Total Protein 6.2 gm/dL (5.7-8.2); eGFR 23 See Note
== END | disposition home or self-care (01) ==
LOC: SLDO 15:09
PROVIDERS: PCP Nurse Practitioner Family; Referring Provider Nurse Practitioner Family; Visit Provider Nurse Practitioner Family
DX: Z01.89 Encounter for other specified special examinations (principal); Z79.2 Long term (current) use of antibiotics
CPT/HCPCS: 36415; 80053; 85025

== ENCOUNTER → 2024-08-10 | Outpatient (BNVA) | payer MEDICARE, MEDICAID, SELFPAY | END | disposition home or self-care (01) | PROVIDERS: PCP Internal Medicine; Referring Provider Internal Medicine; Visit Provider Internal Medicine | DX: I15.0 Renovascular hypertension (principal); D63.8 Anemia in other chronic diseases classified elsewhere; M86.8X7 Other osteomyelitis, ankle and foot; E11.22 Type 2 diabetes mellitus with diabetic chronic kidney disease; N18.4 Chronic kidney disease, stage 4 (severe); R80.9 Proteinuria, unspecified; E11.69 Type 2 diabetes mellitus with other specified complication; E78.5 Hyperlipidemia, unspecified | CPT/HCPCS: 99204 ==

== ENCOUNTER → 2024-08-15 | Outpatient (CLI) | payer MEDICARE, MEDICAID, SELFPAY | END | disposition home or self-care (01) | LOC: SWHD 09:02 | PROVIDERS: PCP Pediatrics; Referring Provider Pediatrics; Visit Provider Surgery | DX: S91.301D Unspecified open wound, right foot, subsequent encounter (principal); X58.XXXD Exposure to other specified factors, subsequent encounter; E11.40 Type 2 diabetes mellitus with diabetic neuropathy, unspecified; I73.9 Peripheral vascular disease, unspecified; M19.91 Primary osteoarthritis, unspecified site; I10 Essential (primary) hypertension; M86.9 Osteomyelitis, unspecified; N18.4 Chronic kidney disease, stage 4 (severe); E78.5 Hyperlipidemia, unspecified; Z79.84 Long term (current) use of oral hypoglycemic drugs; Z72.0 Tobacco use; Z89.512 Acquired absence of left leg below knee | CPT/HCPCS: 99213; A9270; G0463 ==

== ENCOUNTER → 2024-08-29 | Outpatient (CLI) | payer MEDICARE, MEDICAID, SELFPAY | END | disposition home or self-care (01) | LOC: SWHD 10:25 | PROVIDERS: PCP Pediatrics; Referring Provider Pediatrics; Visit Provider Student in an Organized Health Care Education/Training Program | DX: S91.301D Unspecified open wound, right foot, subsequent encounter (principal); X58.XXXD Exposure to other specified factors, subsequent encounter; E11.40 Type 2 diabetes mellitus with diabetic neuropathy, unspecified; I73.9 Peripheral vascular disease, unspecified; M19.91 Primary osteoarthritis, unspecified site; I10 Essential (primary) hypertension; M86.9 Osteomyelitis, unspecified; N18.4 Chronic kidney disease, stage 4 (severe); E78.5 Hyperlipidemia, unspecified; Z79.84 Long term (current) use of oral hypoglycemic drugs; Z72.0 Tobacco use; Z89.512 Acquired absence of left leg below knee | CPT/HCPCS: 99213; G0463 ==

== ENCOUNTER → 2024-09-21 | Outpatient (BNVA) | payer MEDICARE, MEDICAID, SELFPAY | END | disposition home or self-care (01) | PROVIDERS: PCP Internal Medicine; Referring Provider Internal Medicine; Visit Provider Internal Medicine | DX: I12.9 Hypertensive chronic kidney disease with stage 1 through stage 4 chronic kidney disease, or unspecified chronic kidney disease (principal); N18.4 Chronic kidney disease, stage 4 (severe); D63.1 Anemia in chronic kidney disease; M86.671 Other chronic osteomyelitis, right ankle and foot; E78.5 Hyperlipidemia, unspecified; E11.22 Type 2 diabetes mellitus with diabetic chronic kidney disease; R80.9 Proteinuria, unspecified | CPT/HCPCS: 99213 ==

== ENCOUNTER → 2024-09-28 | Outpatient (BNVA) | payer MEDICARE, MEDICAID, SELFPAY | END | disposition home or self-care (01) | PROVIDERS: PCP Internal Medicine; Referring Provider Internal Medicine; Visit Provider Internal Medicine | DX: N17.9 Acute kidney failure, unspecified (principal); E87.5 Hyperkalemia; I12.9 Hypertensive chronic kidney disease with stage 1 through stage 4 chronic kidney disease, or unspecified chronic kidney disease; E11.22 Type 2 diabetes mellitus with diabetic chronic kidney disease; N18.4 Chronic kidney disease, stage 4 (severe); E78.5 Hyperlipidemia, unspecified; M86.671 Other chronic osteomyelitis, right ankle and foot; E13.69 Other specified diabetes mellitus with other specified complication; D63.1 Anemia in chronic kidney disease | CPT/HCPCS: 99214 ==

== ENCOUNTER → 2024-10-08 | Outpatient (BNVA) | payer MEDICARE, MEDICAID, SELFPAY | END | disposition home or self-care (01) | PROVIDERS: PCP Nurse Practitioner Primary Care; Referring Provider Nurse Practitioner Primary Care; Visit Provider Nurse Practitioner Primary Care | DX: E11.22 Type 2 diabetes mellitus with diabetic chronic kidney disease (principal); N18.4 Chronic kidney disease, stage 4 (severe) | CPT/HCPCS: 83036; 99215 ==

== ENCOUNTER → 2024-10-22 | Outpatient (BNVA) | payer MEDICARE, MEDICAID, SELFPAY | END | disposition home or self-care (01) | PROVIDERS: PCP Nurse Practitioner Primary Care; Referring Provider Nurse Practitioner Primary Care; Visit Provider Nurse Practitioner Family | DX: E11.9 Type 2 diabetes mellitus without complications (principal) | CPT/HCPCS: 99213 ==

== ENCOUNTER → 2024-12-28 | Outpatient (BNVA) | payer MEDICARE, MEDICAID, SELFPAY | END | disposition home or self-care (01) | PROVIDERS: PCP Internal Medicine; Referring Provider Internal Medicine; Visit Provider Internal Medicine | DX: E87.5 Hyperkalemia (principal); E11.22 Type 2 diabetes mellitus with diabetic chronic kidney disease; I12.9 Hypertensive chronic kidney disease with stage 1 through stage 4 chronic kidney disease, or unspecified chronic kidney disease; N18.4 Chronic kidney disease, stage 4 (severe) | CPT/HCPCS: 99214 ==

== ENCOUNTER → 2025-01-28 | Outpatient (BNVA) | payer MEDICARE, MEDICAID, SELFPAY | END | disposition home or self-care (01) | PROVIDERS: PCP Internal Medicine; Referring Provider Internal Medicine; Visit Provider Internal Medicine | DX: Z76.0 Encounter for issue of repeat prescription (principal); E78.5 Hyperlipidemia, unspecified; E11.22 Type 2 diabetes mellitus with diabetic chronic kidney disease; I12.9 Hypertensive chronic kidney disease with stage 1 through stage 4 chronic kidney disease, or unspecified chronic kidney disease; N18.4 Chronic kidney disease, stage 4 (severe) | CPT/HCPCS: 99213 ==

== ENCOUNTER → 2025-02-14 | Outpatient (BNVA) | payer MEDICARE, MEDICAID, SELFPAY | END | disposition home or self-care (01) | PROVIDERS: PCP Nurse Practitioner Primary Care; Referring Provider Nurse Practitioner Primary Care; Visit Provider Nurse Practitioner Primary Care | DX: Z01.818 Encounter for other preprocedural examination (principal); I73.9 Peripheral vascular disease, unspecified | CPT/HCPCS: 99214 ==

== ENCOUNTER → 2025-02-15 | Outpatient (BNVA) | payer MEDICARE, MEDICAID, SELFPAY | END | disposition home or self-care (01) | PROVIDERS: PCP Internal Medicine; Referring Provider Internal Medicine; Visit Provider Internal Medicine | DX: E87.5 Hyperkalemia (principal); I12.9 Hypertensive chronic kidney disease with stage 1 through stage 4 chronic kidney disease, or unspecified chronic kidney disease; E11.22 Type 2 diabetes mellitus with diabetic chronic kidney disease; N18.4 Chronic kidney disease, stage 4 (severe); E78.5 Hyperlipidemia, unspecified; E11.51 Type 2 diabetes mellitus with diabetic peripheral angiopathy without gangrene; D63.1 Anemia in chronic kidney disease; R80.9 Proteinuria, unspecified | CPT/HCPCS: 99214 ==

== ENCOUNTER → 2025-02-21 | Outpatient (BNVA) | payer MEDICARE, MEDICAID, SELFPAY | END | disposition home or self-care (01) | PROVIDERS: PCP Nurse Practitioner Family; Referring Provider Nurse Practitioner Family; Visit Provider Nurse Practitioner Primary Care | DX: N18.4 Chronic kidney disease, stage 4 (severe) (principal); I73.9 Peripheral vascular disease, unspecified | CPT/HCPCS: 99213 ==